=== PATIENT | female | born 1960 | race Caucasian/White ===

== ENCOUNTER 2017-03-02 10:17 | Day surgery (SDC) | payer MEDICARE, OTHER ==
[2017-02-24 15:25] VITALS: BMI 24.1
[~2017-03-02 10:17] MED LIST: DEXAMETHASONE SOD PHOSPHATE 4 MG/ML 1 ML VIAL IV ONE; FAMOTIDINE 20 MG/2 ML VIAL IV ONE; LACTATED RINGERS 1,000 ML IV SCH; LIDOCAINE 1% 20 ML VIAL (10MG/ML) FOR IV START INTRADERMA PRN; ONDANSETRON 4 MG/2 ML VIAL IVP ONE; Pre Op ABX Message 1 EACH MISC MISCELLANE ONE; fentaNYL (PF) 50 MCG/ML 2 ML AMP IV PRN
[2017-03-02] MEDS ORDERED: LIDOCAINE 1% INJ 10MG/ML (20 ML MDV) ONE (11:57)
[2017-03-02] MEDS ORDERED: ROCURONIUM BROMIDE 10 MG/ML 10 ML VIAL IV ONE (11:57)
[2017-03-02] MEDS ORDERED: GLYCOPYRROLATE 0.2 MG/ML 2 ML VIAL ONE (11:57)
[2017-03-02] MEDS ORDERED: DEXAMETHASONE SOD PHOS (MDV) 100 MG/10 ML VIAL ONE (11:57)
[2017-03-02] MEDS ORDERED: PROPOFOL 10 MG/ML 20 ML VIAL IV ONE (11:57)
[2017-03-02] MEDS ORDERED: SUCCINYLCHOLINE CHLORIDE 100 MG/5 ML SYR IV ONE (11:57)
[2017-03-02] MEDS ORDERED: fentaNYL (PF) 50 MCG/ML 2 ML AMP ONE (11:57)
[2017-03-02] MEDS ORDERED: NEOSTIGMINE 1 MG/ML 10 ML VIAL ONE (11:57)
[2017-03-02] MEDS ORDERED: MIDAZOLAM 2 MG/2 ML VIAL ONE (11:57)
--- NOTE | 2017-03-02 12:44 | P.OP ---
Date of Procedure: 03/02/17 Preoperative Diagnosis: Bilateral true vocal cord polyps Postoperative Diagnosis: Same Procedure(s) Performed: Microlaryngoscopy with excision bilateral true vocal cord polyps Anesthesia: MATILDAA Surgeon: Narinder Garza Estimated Blood Loss (ml): 1 Pathology: other (Bilateral true vocal cord biopsies) Condition: stable Disposition: PACU Indications for Procedure: This is a 56-year-old white female who has chronic tobacco abuse and has developed what appears to be vocal cord polyps. She's had these excised previously but they have recurred. Operative Findings: Bilateral true vocal cord polyps protruding approximately 3 mm mid true vocal cord Description of Procedure: The patient was brought in the operative suite and placed in a supine position. The patient underwent induction of general anesthesia with oral endotracheal intubation without difficulty. The patient was prepped and draped in the usual aseptic fashion. Patient was positioned with a head donut and shoulder roll prior to the prep. A tooth guard was placed and direct laryngoscopy was performed with systematic evaluation of the base of tongue vallecula both piriform sinuses post cricoid area and endolarynx. With the larynx in good visualization the laryngoscope was placed in suspension and the Zeiss microscope was brought into position. The larynx was well visualized. There were polyps noted bilaterally at the mid true vocal cord. These were excised individually with microdissection technique leaving the overlying normal- appearing mucosa intact which was redraped. The dissection was down to the lamina propria but the lamina propria was left intact. Hemostasis was noted to be good. The laryngoscope and tooth guard were then removed. The patient was allowed to emerge from general anesthesia having tolerated the procedure well was extubated in the operating suite and transferred to the postop recovery area in satisfactory condition.
[2017-03-02 12:59] VITALS: TEMP 97.1
[2017-03-02] MEDS ORDERED: ACETAMINOPHEN TAB 325 MG TAB PO ONE ×2 (14:00→14:07)
[2017-03-02 14:03] VITALS: BP 123/71; PULSE 66; RESP 16
== END 2017-03-02 14:33 | disposition home or self-care (01) ==
LOC: OR 10:17
PROVIDERS: ATTEND Otolaryngology
DX: J38.2 Nodules of vocal cords (principal); K21.9 Gastro-esophageal reflux disease without esophagitis; J43.9 Emphysema, unspecified; F17.210 Nicotine dependence, cigarettes, uncomplicated; E78.00 Pure hypercholesterolemia, unspecified; M81.0 Age-related osteoporosis without current pathological fracture; I73.9 Peripheral vascular disease, unspecified; G62.9 Polyneuropathy, unspecified; Z79.02 Long term (current) use of antithrombotics/antiplatelets; Z79.82 Long term (current) use of aspirin; Z79.899 Other long term (current) drug therapy; Z91.09 Other allergy status, other than to drugs and biological substances; Z79.51 Long term (current) use of inhaled steroids
CPT/HCPCS: 88305; 31536; J2250; J2710; J2405; J2001; J3010; J1100; J0330; J2704

== ENCOUNTER 2023-08-27 08:51 | Emergency (ER) | payer OTHER, MEDICARE ==
--- NOTE | 2023-08-27 09:22 | ED ---
General Adult HPI - General Chief complaint: Shortness of Breath Stated complaint: SOB Time Seen by Provider: 08/27/23 09:01 Source: patient, EMS, RN notes reviewed, old records reviewed Mode of arrival: EMS Limitations: no limitations - History of Present Illness Initial comments: 62-year-old female presenting with chief complaint of dyspnea and epigastric pain. Patient's symptoms began approximately 4 hours prior to arrival. Patient does have history of COPD. She denies cough. Denies lower extremity pain or swelling. She reports some epigastric discomfort. Denies central chest pain. She states she felt like she could not catch her breath. - Related Data Home Medications Medication Instructions Recorded Confirmed Aspirin 162 mg PO DAILY 02/24/17 03/01/17 Betamethasone Dipropionate 1 applic TOPICAL DAILY PRN 02/24/17 02/24/17 [Betamethasone Dipropionate 0.05%] Budesonide/Formoterol Fumarate 2 puff INHALATION DAILY 02/24/17 03/02/17 [Symbicort 160-4.5 Mcg Inhaler] Clopidogrel [Plavix] 75 mg PO DAILY 02/24/17 02/24/17 Gabapentin [Neurontin] 300 mg PO TID 02/24/17 03/02/17 Meloxicam [Mobic] 15 mg PO DAILY 02/24/17 03/02/17 amLODIPine [Norvasc] 2.5 mg PO DAILY 02/24/17 02/24/17 carvediloL [Coreg] 3.125 mg PO PC-LUNCH 02/24/17 03/02/17 methIMAzole [Tapazole] 5 mg PO DAILY 02/24/17 02/24/17 Previous Rx's Medication Instructions Recorded predniSONE 50 mg PO DAILY #5 tab 08/27/23 Allergies Allergy/AdvReac Type Severity Reaction Status Date / Time No Known Allergies Allergy Verified 08/27/23 08:57 Review of Systems ROS Statement: Those systems with pertinent positive or pertinent negative responses have been documented in the HPI. ROS Other: All systems not noted in ROS Statement are negative. Past Medical History Past Medical History: COPD, Fibromyalgia, GERD/Reflux, Hypertension, Mu sculoskeletal Disorder, Osteoarthritis (OA), Thyroid Disorder, Vascular Disorder Additional Past Medical History / Comment(s): neuropathy, cysts on kidney-dr monitors, DDD, admission last year in [place] for "fluid around heart" History of Any Multi-Drug Resistant Organisms: None Reported Past Surgical History: Adenoidectomy, Section, Heart Catheterization, Tonsillectomy Additional Past Surgical History / Comment(s): C/S x3, polyp removed from vocal cord, colonoscopy Past Anesthesia/Blood Transfusion Reactions: No Reported Reaction Past Psychological History: Anxiety Smoking Status: Current every day smoker Past Alcohol Use History: Occasional Past Drug Use History: Marijuana - Past Family History Mother Sister(s) Family Medical History: Cancer General Exam Limitations: no limitations General appearance: alert, in no apparent distress Head exam: Present: atraumatic, normocephalic Eye exam: Present: normal appearance, PERRL ENT exam: Present: normal exam Neck exam: Present: normal inspection. Absent: tenderness, meningismus Respiratory exam: Present: decreased breath sounds. Absent: respiratory distres s, wheezes, rales, accessory muscle use Cardiovascular Exam: Present: regular rate, normal rhythm GI/Abdominal exam: Present: soft. Absent: distended, tenderness, guarding Extremities exam: Present: normal inspection, normal capillary refill. Absent: pedal edema Neurological exam: Present: alert, oriented X3, CN II-XII intact. Absent: motor sensory deficit Skin exam: Present: warm, dry, intact. Absent: cyanosis, diaphoretic Course Vital Signs 08/27/23 08/27/23 08:54 10:05 Temperature 97.7 F Pulse Rate 75 68 Respiratory 20 16 Rate Blood Pressure 152/65 135/71 O2 Sat by Pulse 100 99 Oximetry Medical Decision Making - Medical Decision Making Was pt. sent in by a medical professional or institution (, PA, APPLICATIONS SYSTEMS ANALYST, urgent care, hospital, or senior care...) When possible be specific @ -No Did you speak to anyone other than the patient for history (EMS, parent, family, police, friend...)? What history was obtained from this source @ -No Did you review nursing and triage notes (agree or disagree)? Why? @ -I reviewed and agree with nursing and triage notes Were old charts reviewed (outside hosp., previous admission, EMS record, old EK G, old radiological studies, urgent care reports/EKG's, senior care records)? Report findings @ -No old charts were reviewed Differential Diagnosis (chest pain, altered mental status, abdominal pain women, abdominal pain men, vaginal bleeding, weakness, fever, dyspnea, syncope, headache, dizziness, GI bleed, back pain, seizure, CVA, palpatations, mental health, musculoskeletal)? @ -Not applicable EKG interpreted by me (3pts min.). @ -Sinus bradycardia rate of 57, ND interval 164, QRS duration 86, QTc [address] segment elevation. X-rays interpreted by me (1pt min.). @Chest x-ray: Negative for acute cardiopulmonary findings. No pneumothorax, no focal pneumonia CT interpreted by me (1pt min.). @ -None done U/S interpreted by me (1pt. min.). @ -None done What testing was considered but not performed or refused? (CT, X-rays, U/S, labs)? Why? @ -None What meds were considered but not given or refused? Why? @ -None Did you discuss the management of the patient with other professionals (professionals i.e. , PA, APPLICATIONS SYSTEMS ANALYST, lab, RT, psych nurse, social research assistant, oracle ebs developer, teacher, penal officer, pillowcase maker)? Give summary @ -No Was smoking cessation discussed for >3mins.? @ -No Was critical care preformed (if so, how long)? @ -No Were there social determinants of health that impacted care today? How? (Homelessness, low income, unemployed, alcoholism, drug addiction, transportatio n, low edu. Level, literacy, decrease access to med. care, correction, rehab)? @ -No Was there de-escalation of care discussed even if they declined (Discuss DNR or withdrawal of care, Hospice)? DNR status @ -No What co-morbidities impacted this encounter? (DM, HTN, Smoking, COPD, CAD, Cancer, CVA, ARF, Chemo, Hep., AIDS, mental health diagnosis, sleep apnea, morbid obesity)? @COPD. Was patient admitted / discharged? Hospital course, mention meds given and route, prescriptions, significant lab abnormalities, going to OR and other pertinent info. @ -[h 62-year-old female with an episode of dyspnea, resolved. Patient does have history of COPD. She has slightly diminished air entry but no wheezing. No respiratory distress, no hypoxia. EKG, chest x-ray, laboratory testing including D-dimer and troponin and BNP is unremarkable. Patient is observed and symptoms resolved at this time. She will monitor closely, may be related to COPD. Placed on a short course of steroids she will follow-up with her primary care provider and return as needed. Undiagnosed new problem with uncertain prognosis? @ -No Drug Therapy requiring intensive monitoring for toxicity (Heparin, Nitro, Insulin, Cardizem)? @ -No Were any procedures done? @ -No Diagnosis/symptom? @ -Dyspnea, COPD Acute, or Chronic, or Acute on Chronic? @ -Acute Uncomplicated (without systemic symptoms) or Complicated (systemic symptoms)? @ -Default Side effects of treatment? @ -No Exacerbation, Progression, or Severe Exacerbation? @ -No Poses a threat to life or bodily function? How? (Chest pain, USA, SC, pneumonia, PE, COPD, DKA, ARF, appy, cholecystitis, CVA, Diverticulitis, Homicidal, Suicidal, threat to staff... and all critical care pts) @ -Low risk at this time - Lab Data Result diagrams: 08/27/23 09:24 08/27/23 09: Lab Results 08/27/23 08/27/23 08/27/23 Range/Units 09:24 09:24 09:24 WBC 10.1 (3.8-10.6) k/uL RBC 4.62 (3.80-5.40) m/uL Hgb 14.8 (11.4-16.0) gm/dL Hct 44.3 (34.0-46.0) % MCV 95.8 (80.0-100.0) fL MCH 32.1 (25.0-35.0) pg MCHC 33.5 (31.0-37.0) g/dL RDW 13.2 (11.5-15.5) % Plt Count 175 (150-450) k/uL MPV 9.7 Neutrophils % 72 % Lymphocytes % 20 % Monocytes % 4 % Eosinophils % 2 % Basophils % 1 % Neutrophils # 7.3 (1.3-7.7) k/uL Lymphocytes # 2.0 (1.0-4.8) k/uL Monocytes # 0.4 (0-1.0) k/uL Eosinophils # 0.2 (0-0.7) k/uL Basophils # 0.1 (0-0.2) k/uL PT 10.5 (10.0-12.5) sec INR 0.9 (<1.2) APTT 25.1 (22.0-30.0) sec D-Dimer 0.27 (<0.60) mg/L FEU Sodium 141 (137-145) mmol/L Potassium 3.7 (3.5-5.1) mmol/L Chloride 113 H (98-107) mmol/L Carbon Dioxide 23 (22-30) mmol/L Anion Gap 5 mmol/L BUN 18 H (7-17) mg/dL Creatinine 0.66 (0.52-1.04) mg/dL Est GFR (CKD-EPI)AfAm >90 (>60 ml/min/1.73 sqM) Est GFR (CKD-EPI)NonAf >90 (>60 ml/min/1.73 sqM) Glucose 104 H (74-99) mg/dL Plasma Lactic Acid Mayo (0.7-2.0) mmol/L Calcium 9.2 (8.4-10.2) mg/dL Total Bilirubin 0.6 (0.2-1.3) mg/dL AST 20 (14-36) U/L ALT 20 (4-34) U/L Alkaline Phosphatase 93 (38-126) U/L Troponin I (0.000-0.034) ng/mL NT-Pro-B Natriuret Pep 272 pg/mL Total Protein 5.9 L (6.3-8.2) g/dL Albumin 4.0 (3.5-5.0) g/dL Lipase 65 (23-300) U/L 08/27/23 08/27/23 Range/Units 09:24 09:24 WBC (3.8-10.6) k/uL RBC (3.80-5.40) m/uL Hgb (11.4-16.0) gm/dL Hct (34.0-46.0) % MCV (80.0-100.0) fL MCH (25.0-35.0) pg MCHC (31.0-37.0) g/dL RDW (11.5-15.5) % Plt Count (150-450) k/uL MPV Neutrophils % % Lymphocytes % % Monocytes % % Eosinophils % % Basophils % % Neutrophils # (1.3-7.7) k/uL Lymphocytes # (1.0-4.8) k/uL Monocytes # (0-1.0) k/uL Eosinophils # (0-0.7) k/uL Basophils # (0-0.2) k/uL PT (10.0-12.5) sec INR (<1.2) APTT (22.0-30.0) sec D-Dimer (<0.60) mg/L FEU Sodium (137-145) mmol/L Potassium (3.5-5.1) mmol/L Chloride (98-107) mmol/L Carbon Dioxide (22-30) mmol/L Anion Gap mmol/L BUN (7-17) mg/dL Creatinine (0.52-1.04) mg/dL Est GFR (CKD-EPI)AfAm (>60 ml/min/1.73 sqM) Est GFR (CKD-EPI)NonAf (>60 ml/min/1.73 sqM) Glucose (74-99) mg/dL Plasma Lactic Acid Mayo 1.3 (0.7-2.0) mmol/L Calcium (8.4-10.2) mg/dL Total Bilirubin (0.2-1.3) mg/dL AST (14-36) U/L ALT (4-34) U/L Alkaline Phosphatase (38-126) U/L Troponin I <0.012 (0.000-0.034) ng/mL NT-Pro-B Natriuret Pep pg/mL Total Protein (6.3-8.2) g/dL Albumin (3.5-5.0) g/dL Lipase (23-300) U/L Disposition Clinical Impression: COPD (chronic obstructive pulmonary disease) Disposition: HOME SELF-CARE Instructions (If sedation given, give patient instructions): COPD (Chronic Obstructive Pulmonary Disease) (ED) Prescriptions: predniSONE 50 mg PO DAILY #5 tab Is patient prescribed a controlled substance at d/c from ED?: No Referrals: Leonidas Benson MD [Primary Care Provider] - 1-2 days Time of Disposition: 10:59
[2023-08-27 09:32] LABS: Basophils # (A) 0.1 k/uL (0-0.2); Basophils % (A) 1 %; Eosinophils # (A) 0.2 k/uL (0-0.7); Eosinophils % (A) 2 %; HCT 44.3 % (34.0-46.0); HGB 14.8 gm/dL (11.4-16.0); Lymphocytes % (A) 20 %; MCH 32.1 pg (25.0-35.0); MCHC 33.5 g/dL (31.0-37.0); MCV 95.8 fL (80.0-100.0); Mean Platelet Volume 9.7; Monocytes # (A) 0.4 k/uL (0-1.0); Monocytes % (A) 4 %; Neutrophils # (A) 7.3 k/uL (1.3-7.7); Neutrophils % (A) 72 %; Platelet Count 175 k/uL (150-450); RBC 4.62 m/uL (3.80-5.40); RDW 13.2 % (11.5-15.5); WBC 10.1 k/uL (3.8-10.6)
--- NOTE | 2023-08-27 09:44 | XR ---
EXAMINATION TYPE: XR chest 2V DATE OF EXAM: 08/27/2023 9:36 AM CLINICAL INDICATION:Female, 62 years old with history of difficulty breathing; H COMPARISON: None TECHNIQUE: XR chest 2V Frontal view of the chest. FINDINGS: Lungs/Pleura: There is no evidence of pleural effusion, focal consolidation, or pneumothorax. Pulmonary vascularity: Unremarkable. Heart/mediastinum: Cardiomediastinal silhouette is unremarkable. Musculoskeletal: No acute osseous pathology. IMPRESSION: No acute cardiopulmonary disease/process.
[2023-08-27 09:46] LABS: ALT 20 U/L (4-34); AST 20 U/L (14-36); African American GFR (CKD) >90 (>60 ml/min/1.73 sqM); Alkaline Phosphatase 93 U/L (38-126); Anion Gap 5 mmol/L; Blood Urea Nitrogen 18 mg/dL (7-17); Calcium 9.2 mg/dL (8.4-10.2); Carbon Dioxide 23 mmol/L (22-30); Chloride 113 mmol/L (98-107); Glucose 104 mg/dL (74-99); Lipase 65 U/L (23-300); Non-African American GFR(CKD) >90 (>60 ml/min/1.73 sqM); Potassium 3.7 mmol/L (3.5-5.1); Sodium 141 mmol/L (137-145); Total Bilirubin 0.6 mg/dL (0.2-1.3); Total Protein 5.9 g/dL (6.3-8.2)
[2023-08-27 09:54] LABS: NT-Pro-B-Type Natriuretic Pept 272 pg/mL
[2023-08-27 09:55] LABS: INR 0.9 (<1.2); Partial Thromboplastin Time 25.1 sec (22.0-30.0); Prothrombin Time 10.5 sec (10.0-12.5)
[2023-08-27 11:07] VITALS: BP 147/62; PULSE 58; RESP 18; TEMP 98
== END 2023-08-27 11:07 | disposition home or self-care (01) ==
LOC: EC 08:51
DX: J44.9 Chronic obstructive pulmonary disease, unspecified (principal); R00.1 Bradycardia, unspecified; F17.200 Nicotine dependence, unspecified, uncomplicated; Z79.51 Long term (current) use of inhaled steroids
CPT/HCPCS: 36415; 71046; 80053; 83605; 83690; 83880; 84484; 85025; 85379; 85610; 85730; 93005; 99285

== ENCOUNTER 2024-06-30 16:19 | Inpatient (IN) | payer MEDICARE, OTHER ==
--- NOTE | 2024-06-30 16:24 | ED ---
Recheck HPI - General Stated Complaint: abn labs, anxiety Time Seen by Provider: 06/30/24 16:23 Source: RN notes reviewed, old records reviewed Mode of arrival: EMS Limitations: no limitations - History of Present Illness Initial Comments: This is a 63-year-old female to the ED for evaluation today. This patient has presented to us for evaluation from [facility] for evaluation regards to CHF with elevated troponin, suspected PE versus CHF. Patient here is presenting with shortness of breath is not on home O2 and is significantly hypoxic without supplemental oxygen. Patient himself is complaining of shortness of breath today. Patient also with severe and extreme anxiety also affecting her life with recent loss of her son. Patient denying any current chest pain MD Complaint: abnormal lab, needs IV antibiotics -: unknown Returns Today for: Called Because of Abnormal Lab/Test, persistent/worsening pain related to initial visit Symptoms Since Prior Visit: worsening pain Context: called for abnormal lab result Associated Symptoms: chest pain, shortness of breath Treatments Prior to Arrival: Given Pain Meds on - Related Data Home Medications Medication Instructions Recorded Confirmed Aspirin 81 mg PO DAILY 02/24/17 06/30/24 Budesonide/Formoterol Fumarate 2 puff INHALATION RT-BID 02/24/17 06/30/24 [Symbicort 160-4.5 Mcg Inhaler] Clopidogrel [Plavix] 75 mg PO DAILY 02/24/17 06/30/24 Gabapentin [Neurontin] 300 mg PO TID PRN 02/24/17 06/30/24 methIMAzole [Tapazole] 5 mg PO DAILY 02/24/17 06/30/24 Albuterol Inhaler [Ventolin Hfa 2 puff INHALATION RT-Q4H PRN 06/30/24 06/30/24 Inhaler] Omeprazole 40 mg PO DAILY 06/30/24 06/30/24 Previous Rx's Medication Instructions Recorded Atorvastatin [Lipitor] 80 mg PO DAILY #30 tab 07/05/24 Furosemide [Lasix] 20 mg PO DAILY #30 tab 07/05/24 LORazepam [Ativan] 0.5 mg PO Q12H PRN #10 tab 07/05/24 Losartan [Cozaar] 12.5 mg PO HS #30 tab 07/05/24 Metoprolol Tartrate [Lopressor] 25 mg PO BID #60 tab 07/05/24 Nicotine 14Mg/24Hr Patch [Habitrol] 1 patch TRANSDERM DAILY #30 patch 07/05/24 Spironolactone [Aldactone] 12.5 mg PO DAILY #30 tablet 07/05/24 predniSONE 10 mg PO DAILY #30 tab 07/05/24 Allergies Allergy/AdvReac Type Severity Reaction Status Date / Time No Known Allergies Allergy Verified 06/30/24 17:09 Review of Systems ROS Statement: Those systems with pertinent positive or pertinent negative responses have been documented in the HPI. ROS Other: All systems not noted in ROS Statement are negative. Past Medical History Past Medical History: COPD, Fibromyalgia, GERD/Reflux, Hypertension, Musculoskeletal Disorder, Osteoarthritis (OA), Thyroid Disorder, Vascular Disorder Additional Past Medical History / Comment(s): neuropathy, cysts on kidney-dr monitors, DDD, admission last year in [place] for "fluid around heart" History of Any Multi-Drug Resistant Organisms: None Reported Past Surgical History: Adenoidectomy, Section, Heart Catheterization, Tonsillectomy Additional Past Surgical History / Comment(s): C/S x3, polyp removed from vocal cord, colonoscopy Past Anesthesia/Blood Transfusion Reactions: No Reported Reaction Past Psychological History: Anxiety Smoking Status: Current every day smoker Past Alcohol Use History: Occasional Past Drug Use History: Marijuana - Past Family History Mother Sister(s) Family Medical History: Cancer General Exam General appearance: alert, anxious, in distress Head exam: Present: atraumatic, normocephalic, normal inspection Eye exam: Present: normal appearance, PERRL, EOMI. Absent: scleral icterus, conjunctival injection, periorbital swelling ENT exam: Present: normal exam, mucous membranes moist Neck exam: Present: normal inspection. Absent: tenderness, meningismus, lym phadenopathy Respiratory exam: Present: respiratory distress, wheezes, accessory muscle use, decreased breath sounds, prolonged expiratory. Absent: rales, rhonchi, stridor Cardiovascular Exam: Present: normal rhythm, tachycardia, normal heart sounds. Absent: systolic murmur, diastolic murmur, rubs, gallop, clicks GI/Abdominal exam: Present: soft, normal bowel sounds. Absent: distended, tenderness, guarding, rebound, rigid Extremities exam: Present: normal inspection, full ROM, normal capillary refill. Absent: tenderness, pedal edema, joint swelling, calf tenderness Back exam: Present: normal inspection Neurological exam: Present: alert, oriented X3, CN II-XII intact Psychiatric exam: Present: normal affect, normal mood Skin exam: Present: warm, dry, intact, normal color. Absent: rash Course Vital Signs 06/30/24 06/30/24 06/30/24 16:23 16:30 17:21 Temperature 97.5 F L Pulse Rate 102 H 108 H Respiratory 18 Rate Blood Pressure 104/64 O2 Sat by Pulse 82 L 94 L Oximetry Fraction of Inspired Oxygen (FIO2) 06/30/24 06/30/24 06/30/24 18:04 19:10 19:37 Temperature Pulse Rate 105 H 101 H 100 Respiratory 18 24 Rate Blood Pressure 91/62 82/63 O2 Sat by Pulse 93 L 94 L Oximetry Fraction of 75 Inspired Oxygen (FIO2) - Reevaluation(s) Reevaluation #1: 06/30/24 17:28 Medical records reviewed Transferring paperwork reviewed including increased troponin, CT scan showing no PE or CHF Reevaluation #2: 06/30/24 17:28 Patient mildly improved with supplemental O2 but still in respiratory distress Reevaluation #3: 06/30/24 17:28 Patient informed of results questions answered Reevaluation #4: Was pt. sent in by a medical professional or institution (, PA, WATER RECLAMATION SYSTEMS OPERATOR, urgent care, hospital, or skilled nursing...) When possible be specific @ -no Did you speak to anyone other than the patient for history (EMS, parent, family, police, friend...)? What history was obtained from this source @ -no Did you review nursing and triage notes (agree or disagree)? Why? @ -agree Are old charts reviewed (outside hosp., previous admission, EMS record, old EKG, old radiological studies, urgent care reports/EKG's, skilled nursing records)? Report findings @ -yes Differential Diagnosis (chest pain, altered mental status, abdominal pain women, abdominal pain men, vaginal bleeding, weakness, fever, dyspnea, syncope, headache, dizziness, GI bleed, back pain, seizure, CVA, palpatations, mental health, musculoskeletal)? @ -prior EKG interpreted by me (3pts min.). @ -yes X-rays interpreted by me (1pt min.). @ -yes positive for CHF CT interpreted by me (1pt min.). @ -yes negative for acute disease U/S interpreted by me (1pt. min.). @ -no What testing was considered but not performed or refused? (CT, X-rays, U/S, labs)? Why? @ -none What meds were considered but not given or refused? Why? @ -none Did you discuss the management of the patient with other professionals (professionals i.e. Dr., PA, WATER RECLAMATION SYSTEMS OPERATOR, lab, RT, psych nurse, forensic social worker, mechanical commissioning engineer, teacher, fundraising officer, disability case manager)? Give summary @ -no Was smoking cessation discussed for >3mins.? @ -no Was critical care preformed (if so, how long)? @ -yes31 Were there social determinants of health that impacted care today? How? (Homelessness, low income, unemployed, alcoholism, drug addiction, transportation, low edu. Level, literacy, decrease access to med. care, shelter, r ehab)? @ -none Was there de-escalation of care discussed even if they declined (Discuss DNR or withdrawal of care, Hospice)? DNR status @ -no What co-morbidities impacted this encounter? (DM, HTN, Smoking, COPD, CAD, Cancer, CVA, ARF, Chemo, Hep., AIDS, mental health diagnosis, sleep apnea, morbid obesity)? @ -none Was patient admitted / discharged? Hospital course, mention meds given and route , prescriptions, significant lab abnormalities, going to OR and other pertinent info. @ - 63 female with acute non-STEMI, significant COPD with hypoxia and CHF. Patient will admit for possible cardiogenic shock, hypoxic respiratory failure with COPD and CHF patient is having also severe anxiety here in the ER with loss of her son yesterday. Admitted Undiagnosed new problem with uncertain prognosis? @ -no Drug Therapy requiring intensive monitoring for toxicity (Heparin, Nitro, Insulin, Cardizem)? @ -no Were any procedures done? @ -no Diagnosis/symptom? @ -Non-ST elevated MO with COPD hypoxia and CHF, hypoxic respiratory failure Acute, or Chronic, or Acute on Chronic? @ -Acute Uncomplicated (without systemic symptoms) or Complicated (systemic symptoms)? @ -Complicated Side effects of treatment? @ -no Exacerbation, Progression, or Severe Exacerbation? @ -exacerbation Poses a threat to life or bodily function? How? (Chest pain, USA, MO, pneumonia, PE, COPD, DKA, ARF, appy, cholecystitis, CVA, Diverticulitis, Homicidal, Suicidal, threat to staff... and all critical care pts) @ -yes hypoxic respiratory failure Reevaluation #5: Differential Dyspnea: Coronary syndrome, arrhythmia, tamponade, asthma, COPD, pulmonary embolism, pneumonia, pneumothorax, pulmonary effusion, anaphylaxis, diabetic ketoacidosis, flailed chest, pulmonary contusion, diaphragmatic rupture, anemia, neuromuscular, this is not meant to be an all-inclusive list. - Consultations Consultation #1: Spoke with [facility] who agrees to admit this patient Medical Decision Making - Medical Decision Making 63 female with acute non-STEMI, significant COPD with hypoxia and CHF. Patient will admit for possible cardiogenic shock, hypoxic respiratory failure with COPD and CHF patient is having also severe anxiety here in the ER with loss of her son yesterday. - Lab Data Result diagrams: 07/03/24 06:27 07/03/24 06:27 Lab Results 06/30/24 06/30/24 06/30/24 Range/Units 16:56 16:56 16:56 WBC 22.95 H (4.50-10.00) 10*3/uL RBC 4.93 (4.10-5.20) 10*6/uL Hgb 16.1 H (12.0-15.0) g/dL Hct 46.1 (37.2-46.3) % MCV 93.5 (80.0-97.0) fL MCH 32.7 H (27.0-32.0) pg MCHC 34.9 (32.0-37.0) g/dL Plt Count 219 (140-440) 10*3/uL MPV 12.0 (9.5-12.2) fL Immature Gran % (Auto) 0.5 % Neutrophils % 77.9 % Lymphocytes % 14.9 % Monocytes % 6.3 % Eosinophils % 0.1 % Basophils % 0.3 % Immature Gran # 0.11 H (0.00-0.04) 10*3/uL Neutrophils # 17.87 H (1.80-7.70) 10*3/uL Lymphocytes # 3.42 (0.90-5.00) 10*3/uL Monocytes # 1.45 H (0.20-1.00) 10*3/uL Eosinophils # 0.03 L (0.04-0.35) 10*3/uL Basophils # 0.07 (0.00-0.10) 10*3/uL PT 11.5 (10.0-12.5) sec INR 1.1 (<1.2) APTT 31.3 H (22.0-30.0) sec Sodium 136 L (137-145) mmol/L Potassium 5.1 (3.5-5.1) mmol/L Chloride 108 H (98-107) mmol/L Carbon Dioxide 16 L (22-30) mmol/L Anion Gap 12 mmol/L BUN 33 H (7-17) mg/dL Creatinine 0.68 (0.52-1.04) mg/dL Est GFR (CKD-EPI)AfAm >90 (>60 ml/min/1.73 sqM) Est GFR (CKD-EPI)NonAf >90 (>60 ml/min/1.73 sqM) Glucose 150 H (74-99) mg/dL Plasma Lactic Acid Mayo (0.7-2.0) mmol/L Calcium 9.4 (8.4-10.2) mg/dL Phosphorus 3.5 (2.5-4.5) mg/dL Magnesium 1.9 (1.6-2.3) mg/dL Total Bilirubin 1.4 H (0.2-1.3) mg/dL AST 42 H (14-36) U/L ALT 26 (4-34) U/L Alkaline Phosphatase 88 (38-126) U/L Troponin I (0.000-0.034) ng/mL Total Protein 6.8 (6.3-8.2) g/dL Albumin 4.4 (3.5-5.0) g/dL Salicylates mg/dL Acetaminophen ug/mL 06/30/24 06/30/24 06/30/24 Range/Units 16:56 16:56 16:56 WBC (4.50-10.00) 10*3/uL RBC (4.10-5.20) 10*6/uL Hgb (12.0-15.0) g/dL Hct (37.2-46.3) % MCV (80.0-97.0) fL MCH (27.0-32.0) pg MCHC (32.0-37.0) g/dL Plt Count (140-440) 10*3/uL MPV (9.5-12.2) fL Immature Gran % (Auto) % Neutrophils % % Lymphocytes % % Monocytes % % Eosinophils % % Basophils % % Immature Gran # (0.00-0.04) 10*3/uL Neutrophils # (1.80-7.70) 10*3/uL Lymphocytes # (0.90-5.00) 10*3/uL Monocytes # (0.20-1.00) 10*3/uL Eosinophils # (0.04-0.35) 10*3/uL Basophils # (0.00-0.10) 10*3/uL PT (10.0-12.5) sec INR (<1.2) APTT (22.0-30.0) sec Sodium (137-145) mmol/L Potassium (3.5-5.1) mmol/L Chloride (98-107) mmol/L Carbon Dioxide (22-30) mmol/L Anion Gap mmol/L BUN (7-17) mg/dL Creatinine (0.52-1.04) mg/dL Est GFR (CKD-EPI)AfAm (>60 ml/min/1.73 sqM) Est GFR (CKD-EPI)NonAf (>60 ml/min/1.73 sqM) Glucose (74-99) mg/dL Plasma Lactic Acid Mayo 2.3 H* (0.7-2.0) mmol/L Calcium (8.4-10.2) mg/dL Phosphorus (2.5-4.5) mg/dL Magnesium (1.6-2.3) mg/dL Total Bilirubin (0.2-1.3) mg/dL AST (14-36) U/L ALT (4-34) U/L Alkaline Phosphatase (38-126) U/L Troponin I 2.140 H* (0.000-0.034) ng/mL Total Protein (6.3-8.2) g/dL Albumin (3.5-5.0) g/dL Salicylates <1.0 mg/dL Acetaminophen <10.0 ug/mL - EKG Data -: EKG Interpreted by Me (EKG is sinus 89 MA 142 QRS 80 QTc 392) - Radiology Data Radiology results: report reviewed (Chest x-ray is positive CHF), image reviewed Critical Care Time Critical Care Time: Yes Total Critical Care Time: 31 Disposition Clinical Impression: Hypoxia, CHF (congestive heart failure), Acute exacerbation of chronic obst ructive pulmonary disease (COPD), Pulmonary edema, NSTEMI (non-ST elevated myocardial infarction), Leukocytosis, Altered mental status Disposition: ADMITTED IP TO THIS HOSP Is patient prescribed a controlled substance at d/c from ED?: No Time of Disposition: 17:30
[2024-06-30] MEDS: diphenhydrAMINE 50 MG/ML 1 ML VIAL IVP STA (16:39)
[2024-06-30] MEDS: DEXAMETHASONE SOD PHOSPHATE 10 MG/ML 1 ML VIAL IVP STA (16:42)
[2024-06-30 17:00] LABS: Basophils # (A) 0.07 10*3/uL (0.00-0.10); Basophils % (A) 0.3 %; Eosinophils # (A) 0.03 10*3/uL (0.04-0.35); Eosinophils % (A) 0.1 %; HCT 46.1 % (37.2-46.3); HGB 16.1 g/dL (12.0-15.0); Lymphocytes # (A) 3.42 10*3/uL (0.90-5.00); Lymphocytes % (A) 14.9 %; MCH 32.7 pg (27.0-32.0); MCHC 34.9 g/dL (32.0-37.0); MCV 93.5 fL (80.0-97.0); Monocytes # (A) 1.45 10*3/uL (0.20-1.00); Monocytes % (A) 6.3 %; Neutrophils # (A) 17.87 10*3/uL (1.80-7.70); Neutrophils % (A) 77.9 %; Platelet Count 219 10*3/uL (140-440); RBC 4.93 10*6/uL (4.10-5.20); RDW 12.1 % (11.5-14.5); WBC 22.95 10*3/uL (4.50-10.00)
[2024-06-30] MEDS: SODIUM CHLORIDE 0.9% 1,000 ML IV SCH (17:05)
[2024-06-30 17:11] LABS: INR 1.1 (<1.2); Partial Thromboplastin Time 31.3 sec (22.0-30.0); Prothrombin Time 11.5 sec (10.0-12.5)
[2024-06-30] MEDS: IPRATROPIUM-ALBUTEROL 3 ML NEB INHALATION STA ×2 (17:11→17:44)
[2024-06-30 17:12] LABS: ALT 26 U/L (4-34); African American GFR (CKD) >90 (>60 ml/min/1.73 sqM); Anion Gap 12 mmol/L; Blood Urea Nitrogen 33 mg/dL (7-17); Calcium 9.4 mg/dL (8.4-10.2); Carbon Dioxide 16 mmol/L (22-30); Chloride 108 mmol/L (98-107); Glucose 150 mg/dL (74-99); Non-African American GFR(CKD) >90 (>60 ml/min/1.73 sqM); Sodium 136 mmol/L (137-145); Total Bilirubin 1.4 mg/dL (0.2-1.3)
[2024-06-30] MEDS: LORazepam 1 MG/0.5 ML VIAL IV STA ×2 (17:17→17:51)
[2024-06-30] MEDS ORDERED: MORPHINE SULFATE 4 MG/ML SYRINGE IV PRN (17:18)
[2024-06-30 17:29] LABS: Albumin 4.4 g/dL (3.5-5.0); Magnesium 1.9 mg/dL (1.6-2.3); Phosphorus 3.5 mg/dL (2.5-4.5); Potassium 5.1 mmol/L (3.5-5.1); Total Protein 6.8 g/dL (6.3-8.2)
[2024-06-30 17:30] LABS: AST 42 U/L (14-36); Alkaline Phosphatase 88 U/L (38-126)
[2024-06-30] MEDS: ATORVASTATIN 80 MG TAB PO SCH (17:33)
[2024-06-30] MEDS: ASPIRIN 81 MG PO STA (17:33)
[2024-06-30] MEDS: HEPARIN SOD,PORK IN 0.45% NACL 25,000 UNIT in 0.45% NACL 1 250ML.BAG IV SCH (17:36)
[2024-06-30] MEDS: MORPHINE SULFATE 4 MG/ML SYRINGE IVP STA (17:51)
[2024-06-30 18:02] LABS: VBG PH 7.28 (7.31-7.41)
[2024-06-30] MEDS: AZITHROMYCIN 500 MG in SODIUM CHLORIDE 0.9% 250 ML IVPB SCH (18:03)
--- NOTE | 2024-06-30 18:09 | XR ---
EXAMINATION TYPE: XR chest 1V portable DATE OF EXAM: 06/30/2024 5:05 PM COMPARISON: Chest radiographs from 08/27/2023. CLINICAL INDICATION: Female, 63 years old with history of sob; TECHNIQUE: XR chest 1V portable Frontal view of the chest. FINDINGS: Lungs/Pleura: There is no evidence of pleural effusion, focal consolidation, or pneumothorax. Pulmonary vascularity: Unremarkable. Heart/mediastinum: Cardiomediastinal silhouette is unremarkable. Musculoskeletal: No acute osseous pathology. IMPRESSION: Bilateral lower lobe airspace opacities concerning for pneumonia. Atelectasis could also be considere d.e [facility], , 06/30/2024 6:07 PM
[2024-06-30 18:38] LABS: Acetaminophen <10.0 ug/mL; Salicylate <1.0 mg/dL
[2024-06-30] MEDS: ALBUTEROL NEBULIZED 2.5 MG/3 ML INHALATION SCH (19:10)
--- NOTE | 2024-06-30 19:14 | CT ---
EXAMINATION TYPE: CT brain wo con DATE OF EXAM: 06/30/2024 6:41 PM COMPARISON: None. CLINICAL INDICATION: Female, 63 years old with history of ams, AMS TECHNIQUE: Brain: Axial CT images of the brain were obtained with coronal and sagittal reformats created and rev iewed. Contrast used: None. Oral contrast used: None. CT DLP: 1171.4 mGycm, Automated exposure control for dose reduction was used. FINDINGS: Brain: Extra-axial spaces: No abnormal extra-axial fluid collections. Ventricular system: Within normal limits Cerebral parenchyma: No acute intraparenchymal hemorrhage or mass effect. The costa-white junction is well differentiated. Cerebellum: Unremarkable. Mass effect: No evidence of midline shift. Intracranial vasculature: Atherosclerotic calcifications of the intracranial vessels. Soft tissues: Normal. Calvarium/osseous structures: No depressed skull fracture. Paranasal sinuses and mastoid air cells: Mild scattered paranasal sinus disease. Rightward deviated n manohar septum. Visualized orbits: Orbital contents are intact. IMPRESSION: 1. No acute intracranial process. 2. Nonspecific white matter changes, likely secondary to chronic small vessel ischemic disease. [facility], , 06/30/2024 7:12 PM
[2024-06-30] MEDS: SODIUM CHLORIDE 0.9% 1,000 ML IV ONE (20:16)
[2024-06-30] MEDS: methylPREDNISolone SOD SUCCI 125 MG/2 ML VIAL IV SCH (23:10)
[2024-07-01] MEDS: SODIUM CHLORIDE 0.9% 500 ML 500 ML IV ONE (00:27)
[2024-07-01] MEDS: FUROSEMIDE 10 MG/ML 2 ML VIAL IV ONE (08:24)
[2024-07-01] MEDS: ASPIRIN 325 MG TAB PO SCH (08:24)
[2024-07-01 08:36] LABS: Mean Platelet Volume 12.6 fL (9.5-12.2); Platelet Count 152 10*3/uL (140-440)
--- NOTE | 2024-07-01 10:03 | P.HPIM ---
History of Present Illness This is a pleasant 63 years old female with past medical history of multiple medical problems Presents because of chest pain of 1 day duration which she describes as really bad about 8/10 in the middle of her chest radiating to the back nonspecific in character with no specific risks precipitating or relieving factors associated w ith some dyspnea and she has been having coughing for the last 2 days with some of blood small amount every day. She denies GI specific symptoms she has some headache but no dizziness weakness or numbness There is suspicion of palpitation on admission as well. Patient feels generally weak but no specific lateralization She smokes about 3 to 4 cigarettes/day and she was counseled to quit and she agrees and she wants a nicotine patch. No alcohol or illicit drugs. Also patient vomited 3 times yesterday but there was no blood in it. She is requiring more oxygen since yesterday she was on 4 L went up to 8 L/m, patient is not on oxygen at home and does not use CPAP/BiPAP at home Blood pressure is borderline 96/65. Patient sitting up in bed with no dizziness. WBC is elevated 22.9. Troponin elevated 2.1, 1.4 and 2.1. Venous pH is low at 7.28 and CO2 is within the reference range at 42. [place] [id number]. Salicylate and acetaminophen are negative less than 10 and 100. EKG showing sinus rhythm at [address]-T changes Chest x-ray showing bilateral lower infiltrates suspicious for CHF versus pneumonia Patient currently on heparin drip, ceftriaxone Zithromax Solu-Medrol 40 mg and aspirin 81 mg Review of Systems Review of systems CONSTITUTIONAL: No fever, no malaise, no fatigue. HEENT: No recent visual problems or hearing problems. Denied any sore throat. CARDIOVASCULAR: No orthopnea, PND, no syncope. PULMONARY: No chest wall tenderness, no hemoptysis. GASTROINTESTINAL: No diarrhea, no nausea, no abdominal pain. Normoactive bowel sounds. NEUROLOGICAL: No headaches, no weakness, no numbness. HEMATOLOGICAL: Denies any bleeding or petechiae. GENITOURINARY: Denies any burning micturition, frequency, or urgency. MUSCULOSKELETAL/RHEUMATOLOGICAL: Denies any joint pain, swelling, or any muscle pain. ENDOCRINE: Denies any polyuria or polydipsia. Past Medical History Past Medical History: COPD, Fibromyalgia, GERD/Reflux, Hypertension, Musculoskeletal Disorder, Osteoarthritis (OA), Thyroid Disorder, Vascular Disorder Additional Past Medical History / Comment(s): neuropathy, cysts on kidney-dr monitors, DDD, admission last year in [place] for "fluid around heart" History of Any Multi-Drug Resistant Organisms: None Reported Past Surgical History: Adenoidectomy, Section, Heart Catheterization, Tonsillectomy Additional Past Surgical History / Comment(s): C/S x3, polyp removed from vocal cord, colonoscopy Past Anesthesia/Blood Transfusion Reactions: No Reported Reaction Past Psychological History: Anxiety Smoking Status: Current every day smoker Past Alcohol Use History: Occasional Additional Past Alcohol Use History / Comment(s): <ppd since teens, trying to cut back Past Drug Use History: Marijuana Additional Drug Use History / Comment(s): occasional use - Past Family History Mother Sister(s) Family Medical History: Cancer Medications and Allergies Home Medications Medication Instructions Recorded Confirmed Type Aspirin 81 mg PO DAILY 02/24/17 06/30/24 History Budesonide/Formoterol Fumarate 2 puff INHALATION RT-BID 02/24/17 06/30/24 History [Symbicort 160-4.5 Mcg Inhaler] Clopidogrel [Plavix] 75 mg PO DAILY 02/24/17 06/30/24 History Gabapentin [Neurontin] 300 mg PO TID PRN 02/24/17 06/30/24 History amLODIPine [Norvasc] 2.5 mg PO DAILY 02/24/17 06/30/24 History carvediloL [Coreg] 3.125 mg PO BID 02/24/17 06/30/24 History methIMAzole [Tapazole] 5 mg PO DAILY 02/24/17 06/30/24 History Albuterol Inhaler [Ventolin Hfa 2 puff INHALATION RT-Q4H PRN 06/30/24 06/30/24 History Inhaler] Atorvastatin [Lipitor] 20 mg PO HS 06/30/24 06/30/24 History Meloxicam [Mobic] 7.5 mg PO DAILY 06/30/24 06/30/24 History Omeprazole 40 mg PO DAILY 06/30/24 06/30/24 History Allergies Allergy/AdvReac Type Severity Reaction Status Date / Time No Known Allergies Allergy Verified 06/30/24 17:09 Physical Exam Vitals: Vital Signs Temp Pulse Pulse Resp BP BP Pulse Ox 07/01/24 04:27 85 07/01/24 04:16 86 07/01/24 03:50 98 F 66 18 96/65 95 07/01/24 00:19 87 07/01/24 00:09 81 07/01/24 00:00 18 95 06/30/24 23:13 97.4 F L 76 19 94/66 97 06/30/24 21:06 97.4 F L 89 22 96/65 99 06/30/24 19:37 100 24 82/63 94 L 06/30/24 19:10 101 H 06/30/24 18:04 105 H 18 91/62 93 L 06/30/24 17:21 108 H 06/30/24 16:30 94 L 06/30/24 16:23 97.5 F L 102 H 18 104/64 82 L FiO2 07/01/24 04:27 07/01/24 04:16 07/01/24 03:50 07/01/24 00:19 07/01/24 00:09 07/01/24 00:00 06/30/24 23:13 06/30/24 21:06 06/30/24 19:37 06/30/24 19:10 75 06/30/24 18:04 06/30/24 17:21 06/30/24 16:30 06/30/24 16:23 Intake and Output 06/30/24 07/01/24 07/01/24 22:59 06:59 14:59 Intake Total 48.471 Balance 48.471 Intake: Intake, IV Titration 48.471 Amount Heparin Sod,Pork in 0.45% 48.471 NaCl 25,000 unit In 0.45 % NaCl 1 250ml.bag @ 12 UNITS/KG/HR 7.076 mls/hr IV .Q24H [facility] Rx#: [id number] Other: # Voids 0 Weight 58.967 kg 61.7 kg GENERAL: The patient is alert and oriented x3, not in any acute distress. Well developed, well nourished. HEENT: Pupils are round and equally reacting to light. EOMI. No scleral icterus. No conjunctival pallor. Normocephalic, atraumatic. No pharyngeal erythema. No thyromegaly. CARDIOVASCULAR: S1 and S2 present. No murmurs, rubs, or gallops. PULMONARY: Chest is clear to auscultation, no wheezing , no crackles. ABDOMEN: Soft, nontender, nondistended, normoactive bowel sounds. No palpable organomegaly. MUSCULOSKELETAL: No joint swelling or deformity. EXTREMITIES: No cyanosis, clubbing, or pedal edema. NEUROLOGICAL: Gross neurological examination did not reveal any focal deficits. SKIN: No rashes. no petechiae. Results CBC & Chem 7: 07/01/24 07:25 06/30/24 16:56 Labs: Abnormal Lab Results - Last 24 Hours (Table) 06/30/24 06/30/24 06/30/24 Range/Units 16:56 16:56 16:56 WBC 22.95 H (4.50-10.00) 10*3/uL Hgb 16.1 H (12.0-15.0) g/dL MCH 32.7 H (27.0-32.0) pg MPV (9.5-12.2) fL Immature Gran # 0.11 H (0.00-0.04) 10*3/uL Neutrophils # 17.87 H (1.80-7.70) 10*3/uL Monocytes # 1.45 H (0.20-1.00) 10*3/uL Eosinophils # 0.03 L (0.04-0.35) 10*3/uL APTT 31.3 H (22.0-30.0) sec VBG pH (7.31-7.41) VBG HCO3 (24-28) mmol/L Sodium 136 L (137-145) mmol/L Chloride 108 H (98-107) mmol/L Carbon Dioxide 16 L (22-30) mmol/L BUN 33 H (7-17) mg/dL Glucose 150 H (74-99) mg/dL Plasma Lactic Acid Mayo (0.7-2.0) mmol/L Total Bilirubin 1.4 H (0.2-1.3) mg/dL AST 42 H (14-36) U/L Troponin I (0.000-0.034) ng/mL 06/30/24 06/30/24 06/30/24 Range/Units 16:56 16:56 17:52 WBC (4.50-10.00) 10*3/uL Hgb (12.0-15.0) g/dL MCH (27.0-32.0) pg MPV (9.5-12.2) fL Immature Gran # (0.00-0.04) 10*3/uL Neutrophils # (1.80-7.70) 10*3/uL Monocytes # (0.20-1.00) 10*3/uL Eosinophils # (0.04-0.35) 10*3/uL APTT (22.0-30.0) sec VBG pH 7.28 L (7.31-7.41) VBG HCO3 21 L (24-28) mmol/L Sodium (137-145) mmol/L Chloride (98-107) mmol/L Carbon Dioxide (22-30) mmol/L BUN (7-17) mg/dL Glucose (74-99) mg/dL Plasma Lactic Acid Mayo 2.3 H* (0.7-2.0) mmol/L Total Bilirubin (0.2-1.3) mg/dL AST (14-36) U/L Troponin I 2.140 H* (0.000-0.034) ng/mL 06/30/24 06/30/24 06/30/24 Range/Units 20:05 23:38 23:38 WBC (4.50-10.00) 10*3/uL Hgb (12.0-15.0) g/dL MCH (27.0-32.0) pg MPV (9.5-12.2) fL Immature Gran # (0.00-0.04) 10*3/uL Neutrophils # (1.80-7.70) 10*3/uL Monocytes # (0.20-1.00) 10*3/uL Eosinophils # (0.04-0.35) 10*3/uL APTT 39.7 H (22.0-30.0) sec VBG pH (7.31-7.41) VBG HCO3 (24-28) mmol/L Sodium (137-145) mmol/L Chloride (98-107) mmol/L Carbon Dioxide (22-30) mmol/L BUN (7-17) mg/dL Glucose (74-99) mg/dL Plasma Lactic Acid Mayo (0.7-2.0) mmol/L Total Bilirubin (0.2-1.3) mg/dL AST (14-36) U/L Troponin I 1.440 H* 1.160 H* (0.000-0.034) ng/mL 07/01/ Range/Units 07:25 WBC (4.50-10.00) 10*3/uL Hgb (12.0-15.0) g/dL MCH (27.0-32.0) pg MPV 12.6 H (9.5-12.2) fL Immature Gran # (0.00-0.04) 10*3/uL Neutrophils # (1.80-7.70) 10*3/uL Monocytes # (0.20-1.00) 10*3/uL Eosinophils # (0.04-0.35) 10*3/uL APTT (22.0-30.0) sec VBG pH (7.31-7.41) VBG HCO3 (24-28) mmol/L Sodium (137-145) mmol/L Chloride (98-107) mmol/L Carbon Dioxide (22-30) mmol/L BUN (7-17) mg/dL Glucose (74-99) mg/dL Plasma Lactic Acid Mayo (0.7-2.0) mmol/L Total Bilirubin (0.2-1.3) mg/dL AST (14-36) U/L Troponin I (0.000-0.034) ng/mL Thrombosis Risk Factor Assmnt - Choose All That Apply Any of the Below Risk Factors Present?: Yes Each Factor Represents 1 point: Abnormal pulmonary function (COPD) Other Risk Factors: Yes Each Risk Factor Represents 2 Points: Age 61-74 years Other congenital or acquired thrombophilia - If yes, enter type in comment: No Thrombosis Risk Factor Assessment Total Risk Factor Score: 3 Thrombosis Risk Factor Assessment Level: Moderate Risk Assessment and Plan Assessment: Non-STEMI Metabolic acidosis with low pH 7.28 on admission Acute CHF exacerbation COPD exacerbation Possible pneumonia cannot be ruled out Nicotine dependence Generalized weakness secondary to above Leukocytosis Plan: Continue with heparin drip Continue with aspirin Continue with IV Solu-Medrol Patient antibiotics ceftriaxone and Zithromax Check procalcitonin Cardiology team consult Pulmonary team consult Labs and medication were reviewed.. Continue same treatment. Continue with symptomatic treatment. Resume home medication. Monitor labs and vitals. DVT and GI prophylaxis. Further recommendations as per clinical course of the patient DVT prophylaxis: heparin GI Prophylaxis: Ppi PT/OT: Pending Prognosis is guarded
[2024-07-01] MEDS: LORazepam 1 MG/0.5 ML VIAL IV PRN (10:06)
[2024-07-01 10:12] LABS: Appearance,Urine Clear (Clear); Bilirubin,Urine Negative (Negative); Blood,Urine Negative (Negative); Color,Urine Colorless; Glucose,Urine (UA) Negative (Negative); Ketones,Urine Negative (Negative); Leukocyte Esterase,Urine Negative (Negative); Nitrite,Urine Negative (Negative); PH, Urine 5.5 (5.0-8.0); Protein,Urine Negative (Negative); Urobilinogen,Urine <2.0 mg/dL (<2.0)
[2024-07-01] MEDS: NICOTINE 14MG/24HR PATCH TRANSDERM SCH (10:14)
[2024-07-01] MEDS: PANTOPRAZOLE 40 MG/10 ML VIAL IVP SCH (10:14)
--- NOTE | 2024-07-01 10:37 | P.CRDCN ---
History of Present Illness Consult date: 07/01/24 Consult reason: congestive heart failure History of present illness: This is Kaden Faria NP, I'm dictating on behalf of Dr. Hernández's H&P and A&P The patient was interviewed and examined. HPI: Patient is a pleasant 63-year-old female who is a patient of Dr. Nowak with a past medical history that includes COPD, fibromyalgia, GERD, hyperte nsion, osteoarthritis, hypothyroidism, peripheral vascular disease, who was transferred from an outside facility for evaluation regarding CHF with elevated troponin, suspected PE versus CHF. Patient reports that she had shortness of breath that developed yesterday. Patient discovered that her son had recently, and has been having a significantly difficult time dealing with it. Patient was found to be significantly hypoxic upon arrival to the emergency department. She was started on supplemental oxygen. Transferring paperwork was reviewed which showed elevated troponin, CT scan showed no pulmonary embolism or evidence of congestive heart failure. EKG completed here demonstrated nonspecific T wave abnormalities with no significant evidence of ischemia. Chest x-ray was consistent with possible pneumonia. Lab work showed an elevated white blood cell count. The patient was subsequently admitted for further treatment of possible pneumonia, and cardiology was consulted for the elevated troponins and possible CHF. Office records are reviewed from 03/21/2024 which shows an EKG with similar T wave abnormalities when compared to current EKGs. Patient had a dobutamine stress echo that showed an abnormal stress test by EKG criteria but a negative dobutamine stress echo. This morning upon evaluation the patient reports that she is breathing better today. She is denying any chest pain or heart palpitations. ROS: [No fever, chills, or rigors] [no cough, phlegm, or expectoration] [no nausea, vomiting, or diarrhea] [no hematuria, dysuria] [no musculoskelatal complaints] [no strokes or seizures] [no skin lesions] EXAMINATION: GENERAL: Well-appearing, well-nourished and in no acute distress. NECK: Supple without JVD or thyromegaly. LUNGS: Breath sounds diminished to auscultation bilaterally. Respiration equal and unlabored. No wheezes, rales or rhonchi. HEART: Regular rate and rhythm without murmurs, rubs or gallops. S1 and S2 heard. EXTREMITIES: Normal range of motion, no edema. No clubbing or cyanosis. Peripheral pulses intact and strong. REVIEW OF LABS, ECG & MEDICAL DATA: LABS: White count 22.9, hemoglobin 16.1, platelets 219, sodium 136, potassium 5.1, chloride 108, BUN 33, creatinine 0.68, magnesium 1.9, troponin x 3-2.14, 1.44, 1.16 EKG: Sinus mechanism with nonspecific T wave abnormalities. IMAGING: Chest x-ray dated 06/30/2024 demonstrates bilateral lower lobe airspace opacities concerning for pneumonia, atelectasis could also be considered. CT of the brain without contrast dated 06/30/2024 demonstrates no acute intracranial process, nonspecific white matter changes, likely secondary to chronic small vessel ischemic disease. VITALS: Pulse 84, respirations 18, blood pressure 94/55, O2 saturation 93% on 8 L IMPRESSION: 1. Elevated troponins, downtrending, possibly type II WA secondary to hypoxia 2. Bilateral lower lobe pneumonia 3. Acute hypoxic respiratory failure 4. COPD PLAN: Continue to hold amlodipine. Obtain echocardiogram. Will consider changing carvedilol to metoprolol when blood pressure begins to improve. Takotsubo cardiomyopathy is in the differential secondary to the patient's sudden loss of her son with severe anxiety and grief. Further recommendations based on patient's clinical course. Thank you for the consult and allowing us to participate in the care of this patient. Past Medical History Past Medical History: COPD, Fibromyalgia, GERD/Reflux, Hypertension, Musculoskeletal Disorder, Osteoarthritis (OA), Thyroid Disorder, Vascular Disorder Additional Past Medical History / Comment(s): neuropathy, cysts on kidney-dr fischer onitors, DDD, admission last year in [place] for "fluid around heart" History of Any Multi-Drug Resistant Organisms: None Reported Past Surgical History: Adenoidectomy, Section, Heart Catheterization, Tonsillectomy Additional Past Surgical History / Comment(s): C/S x3, polyp removed from vocal cord, colonoscopy Past Anesthesia/Blood Transfusion Reactions: No Reported Reaction Past Psychological History: Anxiety Smoking Status: Current every day smoker Past Alcohol Use History: Occasional Additional Past Alcohol Use History / Comment(s): <ppd since teens, trying to cut back Past Drug Use History: Marijuana Additional Drug Use History / Comment(s): occasional use - Past Family History Mother Sister(s) Family Medical History: Cancer Medications and Allergies Home Medications Medication Instructions Recorded Confirmed Type Aspirin 81 mg PO DAILY 02/24/17 06/30/24 History Budesonide/Formoterol Fumarate 2 puff INHALATION RT-BID 02/24/17 06/30/24 History [Symbicort 160-4.5 Mcg Inhaler] Clopidogrel [Plavix] 75 mg PO DAILY 02/24/17 06/30/24 History Gabapentin [Neurontin] 300 mg PO TID PRN 02/24/17 06/30/24 History amLODIPine [Norvasc] 2.5 mg PO DAILY 02/24/17 06/30/24 History carvediloL [Coreg] 3.125 mg PO BID 02/24/17 06/30/24 History methIMAzole [Tapazole] 5 mg PO DAILY 02/24/17 06/30/24 History Albuterol Inhaler [Ventolin Hfa 2 puff INHALATION RT-Q4H PRN 06/30/24 06/30/24 History Inhaler] Atorvastatin [Lipitor] 20 mg PO HS 06/30/24 06/30/24 History Meloxicam [Mobic] 7.5 mg PO DAILY 06/30/24 06/30/24 History Omeprazole 40 mg PO DAILY 06/30/24 06/30/24 History Allergies Allergy/AdvReac Type Severity Reaction Status Date / Time No Known Allergies Allergy Verified 06/30/24 17:09 Physical Exam Vitals: Vital Signs Temp Pulse Pulse Resp BP BP Pulse Ox 07/01/24 09:22 90 07/01/24 09:11 98 07/01/24 09:09 92 07/01/24 04:27 85 07/01/24 04:16 86 07/01/24 03:50 98 F 66 18 96/65 95 07/01/24 00:19 87 07/01/24 00:09 81 07/01/24 00:00 18 95 06/30/24 23:13 97.4 F L 76 19 94/66 97 06/30/24 21:06 97.4 F L 89 22 96/65 99 06/30/24 19:37 100 24 82/63 94 L 06/30/24 19:10 101 H 06/30/24 18:04 105 H 18 91/62 93 L 06/30/24 17:21 108 H 06/30/24 16:30 94 L 06/30/24 16:23 97.5 F L 102 H 18 104/64 82 L FiO2 07/01/24 09:22 07/01/24 09:11 07/01/24 09:09 07/01/24 04:27 07/01/24 04:16 07/01/24 03:50 07/01/24 00:19 07/01/24 00:09 07/01/24 00:00 06/30/24 23:13 06/30/24 21:06 06/30/24 19:37 06/30/24 19:10 75 06/30/24 18:04 06/30/24 17:21 06/30/24 16:30 06/30/24 16:23 Intake and Output 06/30/24 07/01/24 07/01/24 22:59 06:59 14:59 Intake Total 48.471 Balance 48.471 Intake: Intake, IV Titration 48.471 Amount Heparin Sod,Pork in 0.45% 48.471 NaCl 25,000 unit In 0.45 % NaCl 1 250ml.bag @ 12 UNITS/KG/HR 7.076 mls/hr IV .Q24H [facility] Rx#: [id number] Other: # Voids 0 Weight 58.967 kg 61.7 kg Results 07/01/24 07:25 06/30/24 16:56 Cardiac Enzymes 06/30/24 06/30/24 06/30/24 Range/Units 16:56 16:56 20:05 AST 42 H (14-36) U/L Troponin I 2.140 H* 1.440 H* (0.000-0.034) ng/mL 06/30/24 Range/Units 23:38 AST (14-36) U/L Troponin I 1.160 H* (0.000-0.034) ng/mL Coagulation 06/30/24 06/30/24 06/30/24 Range/Units 16:56 18:14 23:38 PT 11.5 (10.0-12.5) sec APTT 31.3 H 28.7 39.7 H (22.0-30.0) sec 07/01/24 Range/Units 07:25 PT (10.0-12.5) sec APTT 53.9 H (22.0-30.0) sec CBC 06/30/24 07/01/24 Range/Units 16:56 07:25 WBC 22.95 H (4.50-10.00) 10*3/uL RBC 4.93 (4.10-5.20) 10*6/uL Hgb 16.1 H (12.0-15.0) g/dL Hct 46.1 (37.2-46.3) % Plt Count 219 152 (140-440) 10*3/uL Comprehensive Metabolic Panel 06/30/24 Range/Units 16:56 Sodium 136 L (137-145) mmol/L Potassium 5.1 (3.5-5.1) mmol/L Chloride 108 H (98-107) mmol/L Carbon Dioxide 16 L (22-30) mmol/L BUN 33 H (7-17) mg/dL Creatinine 0.68 (0.52-1.04) mg/dL Glucose 150 H (74-99) mg/dL Calcium 9.4 (8.4-10.2) mg/dL AST 42 H (14-36) U/L ALT 26 (4-34) U/L Alkaline Phosphatase 88 (38-126) U/L Total Protein 6.8 (6.3-8.2) g/dL Albumin 4.4 (3.5-5.0) g/dL Current Medications Generic Name Dose Route Start Last Admin Trade Name Freq PRN Reason Stop Dose Admin Albuterol Sulfate 2.5 mg 06/30/24 20:00 07/01/24 09:08 Albuterol Nebulized 2.5 Mg/3 Ml INHALATION 2.5 mg RT-Q4H MAURICIO Administration Aspirin 325 mg 07/01/24 09:00 07/01/24 08:24 Aspirin 325 Mg Tab PO 325 mg DAILY MAURICIO Administration Atorvastatin Calcium 80 mg 06/30/24 17:30 07/01/24 08:24 Atorvastatin 80 Mg Tab PO 80 mg DAILY MAURICIO Administration Furosemide 20 mg 07/01/24 21:00 Furosemide 10 Mg/Ml 2 Ml Vial IV Q12HR MAURICIO Sodium Chloride 1,000 mls @ 25 mls/hr 06/30/24 16:30 07/01/24 08:25 Saline 0.9% IV 25 mls/hr .Q24H MAURICIO Administration Heparin Sodium/Sodium Chloride 250 mls @ 7.076 mls/hr 06/30/24 17:30 07/01/24 00:27 25,000 unit/ Sodium Chloride IV 14 units/kg/hr .Q24H MAURICIO 8.255 mls/hr Titration Protocol 12 UNITS/KG/HR Ceftriaxone Sodium 2 gm/ 50 mls @ 100 mls/hr 06/30/24 17:45 07/01/24 08:24 Sodium Chloride IVPB 100 mls/hr Q24HR MAURICIO Administration Protocol Azithromycin 500 mg/ Sodium 250 mls @ 250 mls/hr 06/30/24 18:00 06/30/24 18:03 Chloride IVPB 07/02/24 18:59 250 mls/hr DAILY@1800 MAURICIO Administration Protocol Lorazepam 0.5 mg 06/30/24 23:57 07/01/24 10:06 Lorazepam 1 Mg/0.5 Ml Vial IV 0.5 mg Q4HR PRN Administration Anxiety Methylprednisolone Sodium Succinate 60 mg 07/01/24 00:00 07/01/24 06:10 Methylprednisolone Sod Succi 125 Mg/2 Ml Vial IV 60 mg Q6HR MAURICIO Administration Morphine Sulfate 4 mg 06/30/24 17:18 Morphine Sulfate 4 Mg/Ml Syringe IV Q4HR PRN Chest Pain Nicotine 1 patch 07/01/24 10:15 07/01/24 10:14 Nicotine 14mg/24hr Patch TRANSDERM 1 patch DAILY MAURICIO Administration Pantoprazole Sodium 40 mg 07/01/24 10:15 07/01/24 10:14 Pantoprazole 40 Mg/10 Ml Vial IVP 40 mg BID MAURICIO Administration Intake and Output 06/30/24 07/01/24 07/01/24 22:59 06:59 14:59 Intake Total 48.471 Balance 48.471 Intake: Intake, IV Titration 48.471 Amount Heparin Sod,Pork in 0.45% 48.471 NaCl 25,000 unit In 0.45 % NaCl 1 250ml.bag @ 12 UNITS/KG/HR 7.076 mls/hr IV .Q24H [facility] Rx#: [id number] Other: # Voids 0 Weight 58.967 kg 61.7 kg 07/01/24 07:25 06/30/24 16:56
[2024-07-01] MEDS ORDERED: DEXTROSE 50% SYRINGE 50 ML IVP PRN ×2 (11:46)
--- NOTE | 2024-07-01 12:12 | P.CNPUL ---
History of Present Illness Consult date: 07/01/24 Requesting physician: Paul E Sheet Reason for consult: dyspnea, cough Chief complaint: Chest pain History of present illness: This is a 62-year-old female with known history of COPD, not O2 dependent and not prednisone dependent, tobacco dependence syndrome, history of fibromyalgia, hypertension, hypothyroidism, patient was seen yesterday at [facility] with an acute episode of chest pain. Patient had a CT of the chest that showed mostly congestive heart failure, patient was transferred to [facility], apparently she recently discovered that her son had recently. And she is having difficulty coping with the situation. In the emergency room patient was noted to be hypoxic upon arrival, she was placed on supplemental oxygen, CT of the chest done at [place] showed no evidence of pulmonary embolism but did show evidence of interstitial edema. EKG showed nonspecific T wave abnormalities, chest x-ray in our institution showed evidence of interstitial edema, doubt underlying pneumonia and it is felt to be less likely considering the clinical history and considering the chest x-ray findings. At any rate patient was found to have elevated troponin levels significantly elevated BNP level, and so far she has been seen by cardiology on consultation, placed on heparin and I recommended diuretics. Patient is now on 7 L high flow nasal cannula O2 saturation is 98%. Admitting physician placed the patient empirically on antibiotics, again index of suspicion for pneumonia is rather low but she is on ceftriaxone and Zithromax, procalcitonin level is pending if normal will discontinue antibiotics in the next 24 hours. Patient does have intermittent episodes of cough with blood-tinged sputum, presently on heparin as recommended by cardiology for her elevated troponin. Review of Systems CONSTITUTIONAL: No fever, no malaise, no fatigue. HEENT: No recent visual problems or hearing problems. Denied any sore throat. CARDIOVASCULAR: As noted in HPI PULMONARY: As noted in HPI GASTROINTESTINAL: No diarrhea, no nausea, no abdominal pain. Normoactive bowel sounds. NEUROLOGICAL: No headaches, no weakness, no numbness. HEMATOLOGICAL: Denies any bleeding or petechiae. GENITOURINARY: Denies any burning micturition, frequency, or urgency. MUSCULOSKELETAL/RHEUMATOLOGICAL: Patient does have history of fibromyalgia ENDOCRINE: Denies any polyuria or polydipsia. Past Medical History Past Medical History: COPD, Fibromyalgia, GERD/Reflux, Hypertension, Musculoskeletal Disorder, Osteoarthritis (OA), Thyroid Disorder, Vascular Disorder Additional Past Medical History / Comment(s): neuropathy, cysts on kidney-dr monitors, DDD, admission last year in [place] for "fluid around heart" History of Any Multi-Drug Resistant Organisms: None Reported Past Surgical History: Adenoidectomy, Section, Heart Catheterization, Tonsillectomy Additional Past Surgical History / Comment(s): C/S x3, polyp removed from vocal cord, colonoscopy Past Anesthesia/Blood Transfusion Reactions: No Reported Reaction Past Psychological History: Anxiety Smoking Status: Current every day smoker Past Alcohol Use History: Occasional Additional Past Alcohol Use History / Comment(s): <ppd since teens, trying to cut back Past Drug Use History: Marijuana Additional Drug Use History / Comment(s): occasional use - Past Family History Mother Sister(s) Family Medical History: Cancer Medications and Allergies Home Medications Medication Instructions Recorded Confirmed Type Aspirin 81 mg PO DAILY 02/24/17 06/30/24 History Budesonide/Formoterol Fumarate 2 puff INHALATION RT-BID 02/24/17 06/30/24 History [Symbicort 160-4.5 Mcg Inhaler] Clopidogrel [Plavix] 75 mg PO DAILY 02/24/17 06/30/24 History Gabapentin [Neurontin] 300 mg PO TID PRN 02/24/17 06/30/24 History amLODIPine [Norvasc] 2.5 mg PO DAILY 02/24/17 06/30/24 History carvediloL [Coreg] 3.125 mg PO BID 02/24/17 06/30/24 History methIMAzole [Tapazole] 5 mg PO DAILY 02/24/17 06/30/24 History Albuterol Inhaler [Ventolin Hfa 2 puff INHALATION RT-Q4H PRN 06/30/24 06/30/24 History Inhaler] Atorvastatin [Lipitor] 20 mg PO HS 06/30/24 06/30/24 History Meloxicam [Mobic] 7.5 mg PO DAILY 06/30/24 06/30/24 History Omeprazole 40 mg PO DAILY 06/30/24 06/30/24 History Allergies Allergy/AdvReac Type Severity Reaction Status Date / Time No Known Allergies Allergy Verified 06/30/24 17:09 Physical Exam Vitals: Vital Signs Temp Pulse Pulse Resp BP BP Pulse Ox 07/01/24 10:28 66 18 07/01/24 09:22 90 07/01/24 09:11 98 07/01/24 09:09 92 07/01/24 08:00 84 18 94/55 93 L 07/01/24 04:27 85 07/01/24 04:16 86 07/01/24 03:50 98 F 66 18 96/65 95 07/01/24 00:19 87 07/01/24 00:09 81 07/01/24 00:00 18 95 06/30/24 23:13 97.4 F L 76 19 94/66 97 06/30/24 21:06 97.4 F L 89 22 96/65 99 06/30/24 19:37 100 24 82/63 94 L 06/30/24 19:10 101 H 06/30/24 18:04 105 H 18 91/62 93 L 06/30/24 17:21 108 H 06/30/24 16:30 94 L 06/30/24 16:23 97.5 F L 102 H 18 104/64 82 L FiO2 07/01/24 10:28 07/01/24 09:22 07/01/24 09:11 07/01/24 09:09 07/01/24 08:00 07/01/24 04:27 07/01/24 04:16 07/01/24 03:50 07/01/24 00:19 07/01/24 00:09 07/01/24 00:00 06/30/24 23:13 06/30/24 21:06 06/30/24 19:37 06/30/24 19:10 75 06/30/24 18:04 06/30/24 17:21 06/30/24 16:30 06/30/24 16:23 Intake and Output 06/30/24 07/01/24 07/01/24 22:59 06:59 14:59 Intake Total 48.471 120 Balance 48.471 120 Intake: Intake, IV Titration 48.471 Amount Heparin Sod,Pork in 0.45% 48.471 NaCl 25,000 unit In 0.45 % NaCl 1 250ml.bag @ 12 UNITS/KG/HR 7.076 mls/hr IV .Q24H [facility] Rx#: [id number] Oral 120 Other: # Voids 0 Weight 58.967 kg 61.7 kg General: Revealed a 63-year-old female anxious, tearful, in no distress. Very pleasant. Skin: Skin is warm and dry and no rashes or lesions are noted. Eye: Pupils are equal, round and reactive to light, extra-ocular movements are intact; there is normal conjunctiva bilaterally. Ears, nose, mouth and throat: There are moist mucous membranes and no oral lesions. Neck: The neck is supple, there is no tenderness or JVD. Cardiovascular: There is a regular rate and rhythm. No murmur, rub or gallop is appreciated. Respiratory: Crackles at the bases no rhonchi no wheezes Gastrointestinal: Soft, non-distended, non-tender abdomen without masses or organomegaly noted. There is no rebound or guarding present. Bowel sounds are unremarkable. Back: There is no tenderness to palpation in the midline. There is no obvious deformity. Musculoskeletal: Normal ROM, no tenderness, There is no pedal edema. There is no calf tenderness or swelling. No cords were appreciated. Neurological: CN II-XII intact, Cranial nerves III through XII are intact. There are no obvious motor or sensory deficits. Coordination appears grossly intact. Speech is normal. Psychiatric: Anxious, cooperative, appropriate mood & affect, normal judgment. Results - Laboratory Findings CBC and BMP: 07/01/24 07:25 06/30/24 16:56 PT/INR, D-dimer PT 11.5 sec (10.0-12.5) 06/30/24 16:56 INR 1.1 (<1.2) 06/30/24 16:56 Abnormal lab findings: Abnormal Labs 06/30/24 06/30/24 06/30/24 16:56 16:56 16:56 WBC 22.95 H Hgb 16.1 H MCH 32.7 H MPV Immature Gran # 0.11 H Neutrophils # 17.87 H Monocytes # 1.45 H Eosinophils # 0.03 L APTT 31.3 H VBG pH VBG HCO3 Sodium 136 L Chloride 108 H Carbon Dioxide 16 L BUN 33 H Glucose 150 H Plasma Lactic Acid Mayo Total Bilirubin 1.4 H AST 42 H Troponin I 06/30/24 06/30/24 06/30/24 16:56 16:56 17:52 WBC Hgb MCH MPV Immature Gran # Neutrophils # Monocytes # Eosinophils # APTT VBG pH 7.28 L VBG HCO3 21 L Sodium Chloride Carbon Dioxide BUN Glucose Plasma Lactic Acid Mayo 2.3 H* Total Bilirubin AST Troponin I 2.140 H* 06/30/24 06/30/24 06/30/24 20:05 23:38 23:38 WBC Hgb MCH MPV Immature Gran # Neutrophils # Monocytes # Eosinophils # APTT 39.7 H VBG pH VBG HCO3 Sodium Chloride Carbon Dioxide BUN Glucose Plasma Lactic Acid Mayo Total Bilirubin AST Troponin I 1.440 H* 1.160 H* 07/01/24 07/01/24 07:25 07:25 WBC Hgb MCH MPV 12.6 H Immature Gran # Neutrophils # Monocytes # Eosinophils # APTT 53.9 H VBG pH VBG HCO3 Sodium Chloride Carbon Dioxide BUN Glucose Plasma Lactic Acid Mayo Total Bilirubin AST Troponin I - Diagnostic Findings Chest x-ray: image reviewed (As noted in HPI chest x-ray is suggestive of pulmonary edema underlying pneumonia is not entirely ruled out.) Assessment and Plan Assessment: Impression: Acute hypoxic respiratory failure Acute non-ST elevation myocardial infarction Acute congestive heart failure, ejection fraction is unknown Possible pneumonia however my index of suspicion for pneumonia is extremely low procalcitonin level is pending and follow-up chest x-ray will be done in the next 24 hours after a good course of diuresis if improved with diuretics that favors CHF versus pneumonia. The clinical history and the presentation is more of a cardiac presentation than a pulmonary presentation. History of underlying COPD Tobacco dependence syndrome Recommendation: Continue heparin for now Continue bronchodilators including Solu-Medrol and updrafts Continue Rocephin and Zithromax empirically and discontinue if procalcitonin level is normal Continue diuretics and repeat chest x-ray in 24 hours Continue GI prophylaxis/PPI Will continue to follow. Time with Patient: Greater than 30
[2024-07-01 16:28] LABS: Glucose,Whole Blood 211 mg/dL (70-110)
[2024-07-01] MEDS: INSULIN LISPRO (HumaLOG) 100 UNIT/ML 10 mL VL SQ SCH (16:43)
[2024-07-01 16:49] LABS: Chol/HDL Ratio 2.68 Ratio; LDL Cholesterol,Calculated 65.7 mg/dL (0.0-131.0)
[2024-07-01 19:29] LABS: Glucose,Whole Blood 183 mg/dL (70-110)
[2024-07-01] MEDS: FUROSEMIDE 10 MG/ML 2 ML VIAL IV SCH (20:18)
[2024-07-02 06:08] LABS: Glucose,Whole Blood 122 mg/dL (70-110)
[2024-07-02 07:28] LABS: Basophils # (A) 0.03 10*3/uL (0.00-0.10); Basophils % (A) 0.1 %; HGB 13.4 g/dL (12.0-15.0); Lymphocytes # (A) 1.05 10*3/uL (0.90-5.00); Lymphocytes % (A) 4.8 %; MCH 32.5 pg (27.0-32.0); MCHC 34.4 g/dL (32.0-37.0); MCV 94.7 fL (80.0-97.0); Monocytes # (A) 0.58 10*3/uL (0.20-1.00); Monocytes % (A) 2.7 %; Neutrophils # (A) 20.01 10*3/uL (1.80-7.70); Neutrophils % (A) 91.8 %; Platelet Count 153 10*3/uL (140-440); RBC 4.12 10*6/uL (4.10-5.20); RDW 12.4 % (11.5-14.5); WBC 21.81 10*3/uL (4.50-10.00)
[2024-07-02 07:41] LABS: African American GFR (CKD) >90 (>60 ml/min/1.73 sqM); Anion Gap 9 mmol/L; Blood Urea Nitrogen 33 mg/dL (7-17); Calcium 9.3 mg/dL (8.4-10.2); Carbon Dioxide 24 mmol/L (22-30); Chloride 109 mmol/L (98-107); Glucose 132 mg/dL (74-99); Non-African American GFR(CKD) 82 (>60 ml/min/1.73 sqM); Potassium 3.6 mmol/L (3.5-5.1); Sodium 142 mmol/L (137-145)
[2024-07-02] MEDS: ACETAMINOPHEN TAB 325 MG TAB PO PRN (08:23)
[2024-07-02] MEDS ORDERED: ASPIRIN 81 MG PO SCH (09:00)
--- NOTE | 2024-07-02 09:02 | P.PN ---
Subjective This is a pleasant 63 years old female with past medical history of multiple medical problems Presents because of chest pain of 1 day duration which she describes as really bad about 8/10 in the middle of her chest radiating to the back nonspecific in character with no specific risks precipitating or relieving factors associated with some dyspnea and she has been having coughing for the last 2 days with some of blood small amount every day. She denies GI specific symptoms she has some headache but no dizziness weakness or numbness There is suspicion of palpitation on admission as well. Patient feels generally weak but no specific lateralization She smokes about 3 to 4 cigarettes/day and she was counseled to quit and she agrees and she wants a nicotine patch. No alcohol or illicit drugs. Also patient vomited 3 times yesterday but there was no blood in it. She is requiring more oxygen since yesterday she was on 4 L went up to 8 L/m, patient is not on oxygen at home and does not use CPAP/BiPAP at home Blood pressure is borderline 96/65. Patient sitting up in bed with no dizziness. WBC is elevated 22.9. Troponin elevated 2.1, 1.4 and 2.1. Venous pH is low at 7.28 and CO2 is within the reference range at 42. [place] [id number]. Salicylate and acetaminophen are negative less than 10 and 100. EKG showing sinus rhythm at [address]-T changes Chest x-ray showing bilateral lower infiltrates suspicious for CHF versus pneumonia Patient currently on heparin drip, ceftriaxone Zithromax Solu-Medrol 40 mg and aspirin 81 mg 07/02 Patient today complains from headache Her breathing is better, currently on room air Still on heparin drip but cardiology planning to discontinue it and placed on subcutaneous heparin Also patient is on aspirin and Plavix was added today. Patient had few beats of SVT. No chest pain Used BiPAP machine last night Check procalcitonin is low less than 0.02 Review of systems GASTROINTESTINAL: No diarrhea, no nausea, no vomiting, no abdominal pain. Normoactive bowel sounds. NEUROLOGICAL: No headaches, no weakness, no numbness. HEMATOLOGICAL: Denies any bleeding or petechiae. GENITOURINARY: Denies any burning micturition, frequency, or urgency. MUSCULOSKELETAL/RHEUMATOLOGICAL: Denies any joint pain, swelling, or any muscle pain. ENDOCRINE: Denies any polyuria or polydipsia. Active Medications Generic Name Dose Route Start Last Admin Trade Name Freq PRN Reason Stop Dose Admin Acetaminophen 650 mg 07/02/24 08:13 07/02/24 08:23 Acetaminophen Tab 325 Mg Tab PO 650 mg Q6HR PRN Administration Fever and/ or Mild Pain Albuterol Sulfate 2.5 mg 06/30/24 20:00 07/02/24 04:53 Albuterol Nebulized 2.5 Mg/3 Ml INHALATION Not Given RT-Q4H [facility] Aspirin 81 mg 07/03/24 09:00 Aspirin 81 Mg PO DAILY [facility] Atorvastatin Calcium 80 mg 06/30/24 17:30 07/02/24 08:24 Atorvastatin 80 Mg Tab PO 80 mg DAILY [facility] Administration Budesonide/Formoterol Fumarate 2 puff 07/02/24 20:00 Symbicort 160-4.5 Mcg Inhaler INHALATION RT-BID [facility] Clopidogrel Bisulfate 75 mg 07/02/24 09:00 Clopidogrel 75 Mg Tab PO DAILY [facility] Dextrose/Water 25 ml 07/01/24 11:46 Dextrose 50% Syringe 50 Ml IVP PER PROTOCOL PRN Hypoglycemia Protocol Dextrose/Water 50 ml 07/01/24 11:46 Dextrose 50% Syringe 50 Ml IVP PER PROTOCOL PRN Hypoglycemia Protocol Furosemide 20 mg 07/03/24 09:00 Furosemide 20 Mg Tab PO DAILY [facility] Gabapentin 300 mg 07/02/24 08:41 Gabapentin 300 Mg Cap PO TID PRN Pain Heparin Sodium (Porcine) 5,000 unit 07/02/24 09:00 Heparin Sodium,Porcine 5,000 Unit/Ml 1 Ml Vial SQ Q12HR [facility] Sodium Chloride 1,000 mls @ 25 mls/hr 06/30/24 16:30 07/01/24 08:25 Saline 0.9% IV 25 mls/hr .Q24H [facility] Administration Ceftriaxone Sodium 2 gm/ 50 mls @ 100 mls/hr 06/30/24 17:45 07/02/24 08:24 Sodium Chloride IVPB 100 mls/hr Q24HR [facility] Administration Protocol Azithromycin 500 mg/ Sodium 250 mls @ 250 mls/hr 06/30/24 18:00 07/01/24 16:46 Chloride IVPB 07/02/24 18:59 250 mls/hr DAILY@1800 [facility] Administration Protocol Insulin Human Lispro 0 unit 07/01/24 17:30 07/02/24 06:21 Insulin Lispro (Humalog) 100 Unit/Ml 10 Ml Vl SQ Not Given ACHS [facility] Protocol Lorazepam 0.5 mg 07/01/24 12:55 Lorazepam 0.5 Mg Tab PO Q4HR PRN Anxiety Methimazole 5 mg 07/02/24 09:00 Methimazole 5 Mg Tab PO DAILY [facility] Methylprednisolone Sodium Succinate 60 mg 07/01/24 00:00 07/02/24 06:33 Methylprednisolone Sod Succi 125 Mg/2 Ml Vial IV 60 mg Q6HR [facility] Administration Metoprolol Tartrate 12.5 mg 07/02/24 09:00 Metoprolol Tartrate 12.5 Mg Tab PO BID [facility] Morphine Sulfate 4 mg 06/30/24 17:18 Morphine Sulfate 4 Mg/Ml Syringe IV Q4HR PRN Chest Pain Nicotine 1 patch 07/01/24 10:15 07/02/24 08:24 Nicotine 14mg/24hr Patch TRANSDERM 1 patch DAILY [facility] Administration Pantoprazole Sodium 40 mg 07/01/24 10:15 07/02/24 08:25 Pantoprazole 40 Mg/10 Ml Vial IVP 40 mg BID [facility] Administration Objective - Vital Signs Vital signs: Vital Signs Temp 97.8 F 07/02/24 03:48 Pulse 86 07/02/24 03:48 Resp 18 07/02/24 06:34 BP 91/52 07/02/24 03:48 Pulse Ox 95 07/02/24 06:34 FiO2 75 06/30/24 19:10 Intake & Output 07/01/24 07/02/24 07/02/24 18:59 06:59 18:59 Intake Total 360 423.529 Output Total 300 Balance 360 -300 423.529 Weight 61.7 kg 61.5 kg Intake: Intake, IV Titration 201.529 Amount Heparin Sod,Pork in 0.45% 201.529 NaCl 25,000 unit In 0.45 % NaCl 1 250ml.bag @ 12 UNITS/KG/HR 7.076 mls/hr IV .Q24H [facility] Rx#: [id number] Oral 360 222 Output: Urine 300 Other: # Voids 1 1 - Exam -GENERAL: The patient is alert and oriented x3, not in any acute distress. Well developed, well nourished. Lethargic and tired HEENT: Pupils are round and equally reacting to light. EOMI. No scleral icterus. No conjunctival pallor. Normocephalic, atraumatic. No pharyngeal erythema. No thyromegaly. CARDIOVASCULAR: S1 and S2 present. No murmurs, rubs, or gallops. PULMONARY: Chest is clear to auscultation, no wheezing , no crackles. ABDOMEN: Soft, nontender, nondistended, normoactive bowel sounds. No palpable organomegaly. MUSCULOSKELETAL: No joint swelling or deformity. EXTREMITIES: No cyanosis, clubbing, or pedal edema. NEUROLOGICAL: Gross neurological examination did not reveal any focal deficits. SKIN: No rashes. no petechiae. - Labs CBC & Chem 7: 07/02/24 06:34 07/02/24 06:34 Labs: Abnormal Lab Results - Last 24 Hours (Table) 07/01/24 07/01/24 07/02/24 Range/Units 16:26 19:27 06:05 WBC (4.50-10.00) 10*3/uL MCH (27.0-32.0) pg MPV (9.5-12.2) fL Immature Gran # (0.00-0.04) 10*3/uL Neutrophils # (1.80-7.70) 10*3/uL Eosinophils # (0.04-0.35) 10*3/uL APTT (22.0-30.0) sec Chloride (98-107) mmol/L BUN (7-17) mg/dL Glucose (74-99) mg/dL POC Glucose (mg/dL) 211 H 183 H 122 H (70-110) mg/dL 07/02/24 07/02/24 07/02/24 Range/Units 06:34 06:34 06:34 WBC 21.81 H (4.50-10.00) 10*3/uL MCH 32.5 H (27.0-32.0) pg MPV 13.0 H (9.5-12.2) fL Immature Gran # 0.14 H (0.00-0.04) 10*3/uL Neutrophils # 20.01 H (1.80-7.70) 10*3/uL Eosinophils # 0.00 L (0.04-0.35) 10*3/uL APTT 40.8 H (22.0-30.0) sec Chloride 109 H (98-107) mmol/L BUN 33 H (7-17) mg/dL Glucose 132 H (74-99) mg/dL POC Glucose (mg/dL) (70-110) mg/dL Assessment and Plan Assessment: Acute Non-STEMI Metabolic acidosis with low pH 7.28 on admission Acute CHF exacerbation COPD exacerbation Possible pneumonia cannot be ruled out Nicotine dependence Generalized weakness secondary to above Leukocytosis Plan: Continue with heparin drip Continue with aspirin Continue with IV Solu-Medrol Patient antibiotics ceftriaxone and Zithromax Cardiology team consult Pulmonary team consult Labs and medication were reviewed.. Continue same treatment. Continue with symptomatic treatment. Resume home medication. Monitor labs and vitals. DVT and GI prophylaxis. Further recommendations as per clinical course of the patient DVT prophylaxis: heparin GI Prophylaxis: Ppi PT/OT: Pending Prognosis is guarded
--- NOTE | 2024-07-02 09:33 | XR ---
EXAMINATION TYPE: XR chest 1V portable DATE OF EXAM: 07/02/2024 9:12 AM COMPARISON: 06/30/2024 CLINICAL INDICATION: Female, 63 years old with history of chf, TECHNIQUE: XR chest 1V portable view(s) obtained. FINDINGS: The heart size is normal. The pulmonary vasculature is prominent. There is a developing small left pleural effusion. IMPRESSION: 1. Small left pleural effusion and prominent pulmonary vascular markings. Correlate for point lower l obe. Follow-up is recommended. [facility], , 07/02/2024 9:31 AM
[2024-07-02] MEDS: HEPARIN SODIUM,PORCINE 5,000 UNIT/ML 1 ML VIAL SQ SCH (10:10)
[2024-07-02] MEDS: CLOPIDOGREL 75 MG TAB PO SCH (10:10)
[2024-07-02] MEDS: METOPROLOL TARTRATE 12.5 MG TAB PO SCH (10:10)
--- NOTE | 2024-07-02 10:17 | P.PN ---
Subjective HISTORY OF PRESENT ILLNESS: HPI: Patient is a pleasant 63-year-old female who is a patient of Dr. Nowak with a past medical history that includes COPD, fibromyalgia, GERD, hypertension, osteoarthritis, hypothyroidism, peripheral vascular disease, who was transferred from an outside facility for evaluation regarding CHF with elevated troponin, suspected PE versus CHF. Patient reports that she had shortness of breath that developed yesterday. Patient discovered that her son had recently, and has been having a significantly difficult time dealing with it. Patient was found to be significantly hypoxic upon arrival to the emergency department. She was started on supplemental oxygen. Transferring paperwork was reviewed which showed elevated troponin, CT scan showed no pulmonary embolism or evidence of congestive heart failure. EKG completed here demonstrated nonspecific T wave abnormalities with no significant evidence of ischemia. Chest x-ray was consistent with possible pneumonia. Lab work showed an elevated white blood cell count. The patient was subsequently admitted for further treatment of possible pneumonia, and cardiology was consulted for the elevated troponins and possible CHF. Office records are reviewed from 03/21/2024 which shows an EKG with similar T wave abnormalities when compared to current EKGs. Patient had a dobutamine stress echo that showed an abnormal stress test by EKG criteria but a negative dobutamine stress echo. This morning upon evaluation the patient reports that she is breathing better today. She is denying any chest pain or heart palpitations. REVIEW OF LABS, ECG & MEDICAL DATA: LABS: White count 22.9, hemoglobin 16.1, platelets 219, sodium 136, potassium 5.1, chloride 108, BUN 33, creatinine 0.68, magnesium 1.9, troponin x 3-2.14, 1.44, 1.16 EKG: Sinus mechanism with nonspecific T wave abnormalities. IMAGING: Chest x-ray dated 06/30/2024 demonstrates bilateral lower lobe airspace opacities concerning for pneumonia, atelectasis could also be considered. CT of the brain without contrast dated 06/30/2024 demonstrates no acute intracranial process, nonspecific white matter changes, likely secondary to chronic small vessel ischemic disease. 07/02/2024 Patient examined this morning at bedside. Patient currently denies chest pain or pressure. She reports improvement in her shortness of breath. 2D echo remains pending. She is maintaining sinus mechanism with a heart rate in the 90s. She is currently on IV heparin. PHYSICAL EXAM: VITAL SIGNS: Reviewed. GENERAL: Well-developed in no acute distress. NECK: Supple. No JVD or thyromegaly LUNGS: Respirations even and unlabored. Lungs essentially clear to auscultation bilaterally. HEART: Regular rate and rhythm. S1 and S2 heard. EXTREMITIES: Normal range of motion. No clubbing or cyanosis. Peripheral pulses intact. No lower extremity edema ASSESSMENT: Acute hypoxic respiratory failure Bilateral pneumonia Acute heart failure, type unknown, echo pending History of hypertension History of hyperlipidemia History of COPD Elevated troponins, type II MD secondary to oxygen supply and demand mismatch Peripheral vascular disease History of fibromyalgia History of GERD PLAN: Discontinue IV heparin Hold home dose of Coreg. Begin metoprolol 12.5 mg twice daily Continue to hold amlodipine secondary to soft blood pressures Continue with aspirin and Plavix Discontinue IV Lasix. Begin oral Lasix 20 mg daily Decrease aspirin to 81 mg daily 2D echo ordered. Await results No plans for invasive cardiac procedures at this time Further recommendations pending patient course Nurse practitioner note has been reviewed by physician. Signing provider agrees with the documented findings, assessment, and plan of care documented by [employer] as a scribe. Objective - Vital Signs Vital signs: Vital Signs Temp 97.8 F 07/02/24 08:20 Pulse 89 07/02/24 08:20 Resp 16 07/02/24 08:20 BP 111/70 07/02/24 08:20 Pulse Ox 98 07/02/24 08:20 FiO2 75 06/30/24 19:10 Intake & Output 07/01/24 07/02/24 07/02/24 18:59 06:59 18:59 Intake Total 360 423.529 Output Total 300 Balance 360 -300 423.529 Weight 61.7 kg 61.5 kg Intake: Intake, IV Titration 201.529 Amount Heparin Sod,Pork in 0.45% 201.529 NaCl 25,000 unit In 0.45 % NaCl 1 250ml.bag @ 12 UNITS/KG/HR 7.076 mls/hr IV .Q24H [facility] Rx#: [id number] Oral 360 222 Output: Urine 300 Other: # Voids 1 1 - Labs CBC & Chem 7: 07/02/24 06:34 07/02/24 06:34 Labs: Abnormal Lab Results - Last 24 Hours (Table) 07/01/24 07/01/24 07/02/24 Range/Units 16:26 19:27 06:05 WBC (4.50-10.00) 10*3/uL MCH (27.0-32.0) pg MPV (9.5-12.2) fL Immature Gran # (0.00-0.04) 10*3/uL Neutrophils # (1.80-7.70) 10*3/uL Eosinophils # (0.04-0.35) 10*3/uL APTT (22.0-30.0) sec Chloride (98-107) mmol/L BUN (7-17) mg/dL Glucose (74-99) mg/dL POC Glucose (mg/dL) 211 H 183 H 122 H (70-110) mg/dL 07/02/24 07/02/24 07/02/24 Range/Units 06:34 06:34 06:34 WBC 21.81 H (4.50-10.00) 10*3/uL MCH 32.5 H (27.0-32.0) pg MPV 13.0 H (9.5-12.2) fL Immature Gran # 0.14 H (0.00-0.04) 10*3/uL Neutrophils # 20.01 H (1.80-7.70) 10*3/uL Eosinophils # 0.00 L (0.04-0.35) 10*3/uL APTT 40.8 H (22.0-30.0) sec Chloride 109 H (98-107) mmol/L BUN 33 H (7-17) mg/dL Glucose 132 H (74-99) mg/dL POC Glucose (mg/dL) (70-110) mg/dL
[2024-07-02 11:19] LABS: Glucose,Whole Blood 122 mg/dL (70-110)
[2024-07-02] MEDS: methIMAzole 5 MG TAB PO SCH (11:34)
--- NOTE | 2024-07-02 11:37 | P.PN ---
Subjective Progress Note Date: 07/02/24 Principal diagnosis: Acute hypoxic respiratory failure with acute non-ST elevation myocardial infarction and acute congestive heart failure, unknown ejection fraction. This is a 62-year-old female with known history of COPD, not O2 dependent and not prednisone dependent, tobacco dependence syndrome, history of fibromyalgia, hypertension, hypothyroidism, patient was seen yesterday at [facility] with an acute episode of chest pain. Patient had a CT of the chest that showed mostly congestive heart failure, patient was transferred to [facility], apparently she recently discovered that her son had recently. And she is having difficulty coping with the situation. In the emergency room patient was noted to be hypoxic upon arrival, she was placed on supplemental oxygen, CT of the chest done at [place] showed no evidence of pulmonary embolism but did show evidence of interstitial edema. EKG showed nonspecific T wave abnormalities, chest x-ray in our institution showed evidence of interstitial edema, doubt underlying pneumonia and it is felt to be less likely considering the clinical history and considering the chest x-ray findin gs. At any rate patient was found to have elevated troponin levels significantly elevated BNP level, and so far she has been seen by cardiology on consultation, placed on heparin and I recommended diuretics. Patient is now on 7 L high flow nasal cannula O2 saturation is 98%. Admitting physician placed the patient empirically on antibiotics, again index of suspicion for pneumonia is rather low but she is on ceftriaxone and Zithromax, procalcitonin level is pending if normal will discontinue antibiotics in the next 24 hours. Patient does have intermittent episodes of cough with blood-tinged sputum, presently on heparin as recommended by cardiology for her elevated troponin. Seen today on 07/02/2024, patient is feeling better breathing easier but continues to have some shortness of breath. No fever no chills no hemoptysis. Chest x-ray showed definite improvement in her overall pulmonary vasculature, but she does have now a small left-sided pleural effusion. Patient remains on diuretics, steadily improving, being followed by cardiology, echocardiogram is pending. Patient is now off heparin. WBC count is 21.8 hemoglobin 15.4 electrolytes are normal renal profile is normal Objective - Vital Signs Vital signs: Vital Signs Temp 97.8 F 07/02/24 08:20 Pulse 89 07/02/24 08:20 Resp 16 05/26/25 08:20 BP 111/70 07/02/24 08:20 Pulse Ox 98 07/02/24 08:20 FiO2 75 06/30/24 19:10 Intake & Output 07/01/24 07/02/24 07/02/24 18:59 06:59 18:59 Intake Total 360 423.529 Output Total 300 Balance 360 -300 423.529 Weight 61.7 kg 61.5 kg Intake: Intake, IV Titration 201.529 Amount Heparin Sod,Pork in 0.45% 201.529 NaCl 25,000 unit In 0.45 % NaCl 1 250ml.bag @ 12 UNITS/KG/HR 7.076 mls/hr IV .Q24H MAURICIO Rx#: [id number] Oral 360 222 Output: Urine 300 Other: # Voids 1 1 - Exam General: 63-year-old female in no distress remains anxious and tearful Skin: Skin is warm and dry and no rashes or lesions are noted. Eye: Pupils are equal, round and reactive to light, extra-ocular movements are intact; there is normal conjunctiva bilaterally. Ears, nose, mouth and throat: There are moist mucous membranes and no oral lesions. Neck: The neck is supple, there is no tenderness or JVD. Cardiovascular: There is a regular rate and rhythm. No murmur, rub or gallop is appreciated. Respiratory: Diminished breath sounds at the left base, no crackles rhonchi or wheezes Gastrointestinal: Soft, non-distended, non-tender abdomen without masses or organomegaly noted. There is no rebound or guarding present. Bowel sounds are unremarkable. Back: There is no tenderness to palpation in the midline. There is no obvious deformity. Musculoskeletal: Normal ROM, no tenderness, There is no pedal edema. There is no calf tenderness or swelling. No cords were appreciated. Neurological: CN II-XII intact, Cranial nerves III through XII are intact. There are no obvious motor or sensory deficits. Coordination appears grossly intact. Speech is normal. Psychiatric: Anxious, cooperative, appropriate mood & affect, normal judgment. - Labs CBC & Chem 7: 07/02/24 06:34 07/02/24 06:34 Labs: Abnormal Lab Results - Last 24 Hours (Table) 07/01/24 07/01/24 07/02/24 Range/Units 16:26 19:27 06:05 WBC (4.50-10.00) 10*3/uL MCH (27.0-32.0) pg MPV (9.5-12.2) fL Immature Gran # (0.00-0.04) 10*3/uL Neutrophils # (1.80-7.70) 10*3/uL Eosinophils # (0.04-0.35) 10*3/uL APTT (22.0-30.0) sec Chloride (98-107) mmol/L BUN (7-17) mg/dL Glucose (74-99) mg/dL POC Glucose (mg/dL) 211 H 183 H 122 H (70-110) mg/dL 07/02/24 07/02/24 07/02/24 Range/Units 06:34 06:34 06:34 WBC 21.81 H (4.50-10.00) 10*3/uL MCH 32.5 H (27.0-32.0) pg MPV 13.0 H (9.5-12.2) fL Immature Gran # 0.14 H (0.00-0.04) 10*3/uL Neutrophils # 20.01 H (1.80-7.70) 10*3/uL Eosinophils # 0.00 L (0.04-0.35) 10*3/uL APTT 40.8 H (22.0-30.0) sec Chloride 109 H (98-107) mmol/L BUN 33 H (7-17) mg/dL Glucose 132 H (74-99) mg/dL POC Glucose (mg/dL) (70-110) mg/dL 07/02/24 Range/Units 11:16 WBC (4.50-10.00) 10*3/uL MCH (27.0-32.0) pg MPV (9.5-12.2) fL Immature Gran # (0.00-0.04) 10*3/uL Neutrophils # (1.80-7.70) 10*3/uL Eosinophils # (0.04-0.35) 10*3/uL APTT (22.0-30.0) sec Chloride (98-107) mmol/L BUN (7-17) mg/dL Glucose (74-99) mg/dL POC Glucose (mg/dL) 122 H (70-110) mg/dL Assessment and Plan Assessment: Impression: Acute hypoxic respiratory failure Acute non-ST elevation myocardial infarction Acute congestive heart failure, ejection fraction is unknown Possible pneumonia however my index of suspicion for pneumonia is extremely low procalcitonin level is normal, and her BNP level was quite elevated chest x-ray is improving pointing to congestive heart failure. History of underlying COPD Tobacco dependence syndrome Recommendation: Continue heparin for now Continue bronchodilators including Solu-Medrol and updrafts Discontinue Rocephin Continue diuretics, on Lasix 20 mg daily Change methylprednisolone to Medrol Dosepak Continue GI prophylaxis/PPI Will continue to follow. Time with Patient: Less than 30
[2024-07-02] MEDS: LORazepam 0.5 MG TAB PO PRN (11:56)
--- NOTE | 2024-07-02 15:28 | CA ---
Transthoracic Echo Report Name: Aundrea Lubin Age: 63 Gender: F : 1960 Exam Date: 07/02/2024 12:04 Exam Location: [facility] Ht (in): 64 Wt (lb): 136 Ordering Physician: Kaden Faria Attending/Referring Phys: Nonfarm Animal Caretaker Rizwana Burkett RDCS Procedure CPT: Indications: elevated troponin Cardiac Hx: Technical Quality: Contrast 1: Total Dose (mL): Contrast 2: Total Dose (mL): MEASUREMENTS (Male / Female) Normal Values 2D ECHO LV Diastolic Diameter PLAX 4.4 cm 4.2 - 5.9 / 3.9 - 5.3 cm LV Systolic Diameter PLAX 2.6 cm IVS Diastolic Thickness 0.8 cm 0.6 - 1.0 / 0.6 - 0.9 cm LVPW Diastolic Thickness 1.0 cm 0.6 - 1.0 / 0.6 - 0.9 cm LV Relative Wall Thickness 0.4 RV Internal Dim ED PLAX 1.8 cm LA Systolic Diameter LX 3.9 cm 3.0 - 4.0 / 2.7 - 3.8 cm LV Diastolic Volume MOD BP 59.8 cm??? 67 - 155 / 56 - 104 cm??? LV Systolic Volume MOD BP 36.4 cm??? 22 - 58 / 19 - 49 cm??? LV Ejection Fraction MOD BP 39.2 % >= 55 % LV Diastolic Volume MOD 4C 57.6 cm??? LV Systolic Volume MOD 4C 32.0 cm??? LV Ejection Fraction MOD 4C 44.4 % LV Diastolic Length 4C 7.4 cm LV Systolic Length 4C 6.4 cm LV Diastolic Volume MOD 2C 61.4 cm??? LV Systolic Volume MOD 2C 39.6 cm??? LV Ejection Fraction MOD 2C 35.5 % LV Diastolic Length 2C 7.3 cm LV Systolic Length 2C 6.7 cm LA Volume 80.5 cm??? 18 - 58 / 22 - 52 cm??? LA Volume Index 48.0 cm???/m??? 16 - 28 cm???/m??? M-MODE Aortic Root Diameter MM 2.9 cm LA Systolic Diameter MM 3.4 cm LA Ao Ratio MM 1.2 AV Cusp Separation MM 1.5 cm DOPPLER AV Peak Velocity 158.4 cm/s AV Peak Gradient 10.0 mmHg AV Mean Velocity 119.1 cm/s AV Mean Gradient 6.3 mmHg AV Velocity Time Integral 26.8 cm AI Peak Velocity 360.9 cm/s AI Peak Gradient 52.1 mmHg AI Pressure Half Time 657.5 ms LVOT Peak Velocity 114.2 cm/s LVOT Peak Gradient 5.2 mmHg LVOT Velocity Time Integral 22.8 cm MV Area PHT 2.8 cm??? Mitral E Point Velocity 80.4 cm/s Mitral A Point Velocity 59.4 cm/s Mitral E to A Ratio 1.4 MV Deceleration Time 267.9 ms TR Peak Velocity 314.8 cm/s TR Peak Gradient 39.6 mmHg FINDINGS Left Ventricle Left ventricular ejection fraction is estimated at 30-35%. Moderately decreased left ventricular ejection fraction. Left ventricular cavity size normal. Left ventricular wall thickness normal. Moderately reduced global left ventricular systolic function. Right Ventricle Normal right ventricular size and function. Mild pulmonary hypertension. Right Atrium Mild right atrial dilatation. Left Atrium Severely increased left atrial volume. Mitral Valve Structurally normal mitral valve. No mitral stenosis. [id number]-[id number] mitral regurgitation. Aortic Valve Trileaflet aortic valve. Zwcw-yc-[id number] aortic regurgitation. No aortic stenosis. Tricuspid Valve Structurally normal tricuspid valve. [id number] tricuspid regurgitation. No tricuspid stenosis. Pulmonic Valve No pulmonic stenosis. Trace pulmonic regurgitation. No pulmonic stenosis. Pericardium No pericardial effusion. Left pleural effusion. Aorta Normal size aortic root and proximal ascending aorta. CONCLUSIONS Reason: Abnormal troponins Reduced LV systolic function with anterior and septal and lateral hypokinesis Left atrial enlargement The basal segment contracts reasonably well with the mid and distal LV is definitely hypokinetic Consider Takotsubo syndrome Previewed by: Dr. River Hernández MD (Electronically Signed) Final Date: 02 Jul 2024 15:27
[2024-07-02] MEDS: methylPREDNISolone 4 MG TAB TAPER PO SCH (16:05)
[2024-07-02 16:13] LABS: Glucose,Whole Blood 154 mg/dL (70-110)
[2024-07-02 20:56] LABS: Glucose,Whole Blood 135 mg/dL (70-110)
[2024-07-02] MEDS: SYMBICORT 160-4.5 MCG INHALER INHALATION SCH (21:00)
[2024-07-03 06:17] LABS: Glucose,Whole Blood 124 mg/dL (70-110)
[2024-07-03 06:58] LABS: Basophils # (A) 0.02 10*3/uL (0.00-0.10); Basophils % (A) 0.1 %; HCT 38.2 % (37.2-46.3); HGB 13.3 g/dL (12.0-15.0); Lymphocytes # (A) 1.44 10*3/uL (0.90-5.00); Lymphocytes % (A) 8.6 %; MCH 32.2 pg (27.0-32.0); MCHC 34.8 g/dL (32.0-37.0); MCV 92.5 fL (80.0-97.0); Mean Platelet Volume 12.6 fL (9.5-12.2); Monocytes % (A) 4.2 %; Neutrophils # (A) 14.37 10*3/uL (1.80-7.70); Neutrophils % (A) 86.3 %; Platelet Count 142 10*3/uL (140-440); RBC 4.13 10*6/uL (4.10-5.20); RDW 12.3 % (11.5-14.5); WBC 16.66 10*3/uL (4.50-10.00)
[2024-07-03 07:22] LABS: African American GFR (CKD) >90 (>60 ml/min/1.73 sqM); Anion Gap 7 mmol/L; Blood Urea Nitrogen 35 mg/dL (7-17); Calcium 9.4 mg/dL (8.4-10.2); Carbon Dioxide 25 mmol/L (22-30); Chloride 109 mmol/L (98-107); Glucose 118 mg/dL (74-99); Non-African American GFR(CKD) >90 (>60 ml/min/1.73 sqM); Potassium 3.5 mmol/L (3.5-5.1); Sodium 141 mmol/L (137-145)
[2024-07-03] MEDS: FUROSEMIDE 20 MG TAB PO SCH (07:42)
[2024-07-03] MEDS: ASPIRIN 81 MG PO SCH (07:42)
[2024-07-03] MEDS: GABAPENTIN 300 MG CAP PO PRN (07:49)
--- NOTE | 2024-07-03 09:02 | P.PN ---
Subjective This is a pleasant 63 years old female with past medical history of multiple medical problems Presents because of chest pain of 1 day duration which she describes as really bad about 8/10 in the middle of her chest radiating to the back nonspecific in character with no specific risks precipitating or relieving factors associated with some dyspnea and she has been having coughing for the last 2 days with some of blood small amount every day. She denies GI specific symptoms she has some headache but no dizziness weakness or numbness There is suspicion of palpitation on admission as well. Patient feels generally weak but no specific lateralization She smokes about 3 to 4 cigarettes/day and she was counseled to quit and she agrees and she wants a nicotine patch. No alcohol or illicit drugs. Also patient vomited 3 times yesterday but there was no blood in it. She is requiring more oxygen since yesterday she was on 4 L went up to 8 L/m, patient is not on oxygen at home and does not use CPAP/BiPAP at home Blood pressure is borderline 96/65. Patient sitting up in bed with no dizziness. WBC is elevated 22.9. Troponin elevated 2.1, 1.4 and 2.1. Venous pH is low at 7.28 and CO2 is within the reference range at 42. proBNP [place] 756[address]. Salicylate and acetaminophen are negative less than 10 and 100. EKG showing sinus rhythm at [address]-T changes Chest x-ray showing bilateral lower infiltrates suspicious for CHF versus pneumonia Patient currently on heparin drip, ceftriaxone Zithromax Solu-Medrol 40 mg and aspirin 81 mg 07/02 Patient today complains from headache Her breathing is better, currently on room air Still on heparin drip but cardiology planning to discontinue it and placed on subcutaneous heparin Also patient is on aspirin and Plavix was added today. Patient had few beats of SVT. No chest pain Used BiPAP machine last night Check procalcitonin is low less than 0.02 07/03 Patient awake alert mildly tachypneic no significant breathing difficulty or chest pain She is concerned about comfortable blood today. She is saturating 98% on room air. Hemodynamically stable. WBC is 16,000, hemoglobin stable. Creatinine 0.7. Troponin was elevated on admission Yesterday aspirin and Plavix was added. By cardiology team and Coreg switched to metoprolol 12.5 mg Currently on IV Solu-Medrol, no need for antibiotic Review of systems GASTROINTESTINAL: No diarrhea, no nausea, no vomiting, no abdominal pain. Normoactive bowel sounds. NEUROLOGICAL: No headaches, no weakness, no numbness. HEMATOLOGICAL: (+) bleeding , no petechiae. GENITOURINARY: Denies any burning micturition, frequency, or urgency. MUSCULOSKELETAL/RHEUMATOLOGICAL: Denies any joint pain, swelling, or any muscle pain. Active Medications Generic Name Dose Route Start Last Admin Trade Name Nubia PRN Reason Stop Dose Admin Acetaminophen 650 mg 07/02/24 08:13 07/02/24 16:04 Acetaminophen Tab 325 Mg Tab PO 650 mg Q6HR PRN Administration Fever and/ or Mild Pain Albuterol Sulfate 2.5 mg 06/30/24 20:00 07/03/24 03:53 Albuterol Nebulized 2.5 Mg/3 Ml INHALATION Not Given RT-Q4H MAURICIO Aspirin 81 mg 07/03/24 09:00 07/03/24 07:42 Aspirin 81 Mg PO 81 mg DAILY MAURICIO Administration Atorvastatin Calcium 80 mg 06/30/24 17:30 07/03/24 07:42 Atorvastatin 80 Mg Tab PO 80 mg DAILY MAURICIO Administration Budesonide/Formoterol Fumarate 2 puff 07/02/24 20:00 07/02/24 21:00 Symbicort 160-4.5 Mcg Inhaler INHALATION Not Given RT-BID MAURICIO Clopidogrel Bisulfate 75 mg 07/02/24 09:00 07/03/24 07:42 Clopidogrel 75 Mg Tab PO 75 mg DAILY MAURICIO Administration Dextrose/Water 25 ml 07/01/24 11:46 Dextrose 50% Syringe 50 Ml IVP PER PROTOCOL PRN Hypoglycemia Protocol Dextrose/Water 50 ml 07/01/24 11:46 Dextrose 50% Syringe 50 Ml IVP PER PROTOCOL PRN Hypoglycemia Protocol Furosemide 20 mg 07/03/24 09:00 07/03/24 07:42 Furosemide 20 Mg Tab PO 20 mg DAILY MAURICIO Administration Gabapentin 300 mg 07/02/24 08:41 07/03/24 07:49 Gabapentin 300 Mg Cap PO 300 mg TID PRN Administration Pain Sodium Chloride 1,000 mls @ 25 mls/hr 06/30/24 16:30 07/02/24 15:47 Saline 0.9% IV Not Given .Q24H MAURICIO Insulin Human Lispro 0 unit 07/01/24 17:30 07/03/24 06:21 Insulin Lispro (Humalog) 100 Unit/Ml 10 Ml Vl SQ Not Given ACHS MAURICIO Protocol Lorazepam 0.5 mg 07/01/24 12:55 07/03/24 07:42 Lorazepam 0.5 Mg Tab PO 0.5 mg Q4HR PRN Administration Anxiety Methimazole 5 mg 07/02/24 09:00 07/03/24 07:43 Methimazole 5 Mg Tab PO 5 mg DAILY MAURICIO Administration Methylprednisolone 24 mg 07/02/24 12:00 07/03/24 07:42 Methylprednisolone 4 Mg Tab Taper PO 07/08/24 11:59 24 mg DAILY MAURICIO Administration Taper Metoprolol Tartrate 12.5 mg 07/02/24 09:00 07/03/24 07:42 Metoprolol Tartrate 12.5 Mg Tab PO 12.5 mg BID MAURICIO Administration Morphine Sulfate 4 mg 06/30/24 17:18 Morphine Sulfate 4 Mg/Ml Syringe IV Q4HR PRN Chest Pain Nicotine 1 patch 07/01/24 10:15 07/02/24 08:24 Nicotine 14mg/24hr Patch TRANSDERM 1 patch DAILY MAURICIO Administration Pantoprazole Sodium 40 mg 07/01/24 10:15 07/03/24 07:52 Pantoprazole 40 Mg/10 Ml Vial IVP 40 mg BID MAURICIO Administration Objective - Vital Signs Vital signs: Vital Signs Temp 97.8 F 07/03/24 08:30 Pulse 78 07/03/24 08:30 Resp 18 07/03/24 08:30 BP 110/52 07/03/24 08:30 Pulse Ox 98 07/03/24 08:30 FiO2 75 06/30/24 19:10 Intake & Output 07/02/24 07/03/24 07/03/24 18:59 06:59 18:59 Intake Total 773.529 240 Output Total 0 Balance 773.529 0 240 Weight 59.3 kg Intake: Intake, IV Titration 201.529 Amount Heparin Sod,Pork in 0.45% 201.529 NaCl 25,000 unit In 0.45 % NaCl 1 250ml.bag @ 12 UNITS/KG/HR 7.076 mls/hr IV .Q24H MAURICIO Rx#: [id number] Oral 572 240 Output: Urine 0 Other: # Voids 2 - Exam -GENERAL: The patient is alert and oriented x3, not in any acute distress. Well developed, well nourished. Lethargic and tired HEENT: Pupils are round and equally reacting to light. EOMI. No scleral icterus. No conjunctival pallor. Normocephalic, atraumatic. No pharyngeal erythema. No thyromegaly. CARDIOVASCULAR: S1 and S2 present. No murmurs, rubs, or gallops. PULMONARY: Chest is clear to auscultation, no wheezing , no crackles. ABDOMEN: Soft, nontender, nondistended, normoactive bowel sounds. No palpable organomegaly. MUSCULOSKELETAL: No joint swelling or deformity. EXTREMITIES: No cyanosis, clubbing, or pedal edema. NEUROLOGICAL: Gross neurological examination did not reveal any focal deficits. SKIN: No rashes. no petechiae. - Labs CBC & Chem 7: 07/03/24 06:27 07/03/24 06:27 Labs: Abnormal Lab Results - Last 24 Hours (Table) 07/02/24 07/02/24 07/02/24 Range/Units 11:16 16:09 20:54 WBC (4.50-10.00) 10*3/uL MCH (27.0-32.0) pg MPV (9.5-12.2) fL Immature Gran # (0.00-0.04) 10*3/uL Neutrophils # (1.80-7.70) 10*3/uL Eosinophils # (0.04-0.35) 10*3/uL Chloride (98-107) mmol/L BUN (7-17) mg/dL Glucose (74-99) mg/dL POC Glucose (mg/dL) 122 H 154 H 135 H (70-110) mg/dL 07/03/24 07/03/24 07/03/24 Range/Units 06:16 06:27 06:27 WBC 16.66 H (4.50-10.00) 10*3/uL MCH 32.2 H (27.0-32.0) pg MPV 12.6 H (9.5-12.2) fL Immature Gran # 0.13 H (0.00-0.04) 10*3/uL Neutrophils # 14.37 H (1.80-7.70) 10*3/uL Eosinophils # 0.00 L (0.04-0.35) 10*3/uL Chloride 109 H (98-107) mmol/L BUN 35 H (7-17) mg/dL Glucose 118 H (74-99) mg/dL POC Glucose (mg/dL) 124 H (70-110) mg/dL Assessment and Plan Assessment: Acute Non-STEMI Acute CHF exacerbation, mild and improved COPD exacerbation, mild and improved Hemoptysis Metabolic acidosis with low pH 7.28 on admission. Improved Possible pneumonia cannot be ruled out Nicotine dependence Generalized weakness secondary to above Leukocytosis Plan: H Lasix added by rig builder helper on 07/02 eparin drip discontinued yesterday Continue with aspirin. On steroids Medrol Dosepak by pulmonary Patient antibiotics ceftriaxone and Zithromax antibiotics discontinued Cardiology team consult Pulmonary team consult Labs and medication were reviewed.. Continue same treatment. Continue with symptomatic treatment. Resume home medication. Monitor labs and vitals. DVT and GI prophylaxis. Further recommendations as per clinical course of the patient DVT prophylaxis: Discontinue heparin in view of hemoptysis and patient already on dual antiplatelet therapy with aspirin and Plavix GI Prophylaxis: Ppi PT/OT: Pending Prognosis is guarded
--- NOTE | 2024-07-03 11:35 | P.PN ---
Subjective HISTORY OF PRESENT ILLNESS: HPI: Patient is a pleasant 63-year-old female who is a patient of Dr. Nowak with a past medical history that includes COPD, fibromyalgia, GERD, hypertension, osteoarthritis, hypothyroidism, peripheral vascular disease, who was transferred from an outside facility for evaluation regarding CHF with elevated troponin, suspected PE versus CHF. Patient reports that she had shortness of breath that developed yesterday. Patient discovered that her son had recently, and has been having a significantly difficult time dealing with it. Patient was found to be significantly hypoxic upon arrival to the emergency department. She was started on supplemental oxygen. Transferring paperwork was reviewed which showed elevated troponin, CT scan showed no pulmonary embolism or evidence of congestive heart failure. EKG completed here demonstrated nonspecific T wave abnormalities with no significant evidence of ischemia. Chest x-ray was consistent with possible pneumonia. Lab work showed an elevated white blood cell count. The patient was subsequently admitted for further treatment of possible pneumonia, and cardiology was consulted for the elevated troponins and possible CHF. Office records are reviewed from 03/21/2024 which shows an EKG with similar T wave abnormalities when compared to current EKGs. Patient had a dobutamine stress echo that showed an abnormal stress test by EKG criteria but a negative dobutamine stress echo. This morning upon evaluation the patient reports that she is breathing better today. She is denying any chest pain or heart palpitations. REVIEW OF LABS, ECG & MEDICAL DATA: LABS: White count 22.9, hemoglobin 16.1, platelets 219, sodium 136, potassium 5.1, chloride 108, BUN 33, creatinine 0.68, magnesium 1.9, troponin x 3-2.14, 1.44, 1.16 EKG: Sinus mechanism with nonspecific T wave abnormalities. IMAGING: Chest x-ray dated 06/30/2024 demonstrates bilateral lower lobe airspace opacities concerning for pneumonia, atelectasis could also be considered. CT of the brain without contrast dated 06/30/2024 demonstrates no acute intracranial process, nonspecific white matter changes, likely secondary to chronic small vessel ischemic disease. 07/02/2024 Patient examined this morning at bedside. Patient currently denies chest pain or pressure. She reports improvement in her shortness of breath. 2D echo remains pending. She is maintaining sinus mechanism with a heart rate in the 90s. She is currently on IV heparin. 07/03/2024 Patient examined this morning at bedside. Patient currently denies chest pain or pressure. She denies shortness of breath. Echocardiogram completed revealing ejection fraction 30 to 35% with anterior and septal and lateral h ypokinesis, consider Takotsubo. Systolic blood pressure in the low 100s. PHYSICAL EXAM: VITAL SIGNS: Reviewed. GENERAL: Well-developed in no acute distress. NECK: Supple. No JVD or thyromegaly LUNGS: Respirations even and unlabored. Lungs essentially clear to auscultation bilaterally. HEART: Regular rate and rhythm. S1 and S2 heard. EXTREMITIES: Normal range of motion. No clubbing or cyanosis. Peripheral pulses intact. No lower extremity edema ASSESSMENT: Acute hypoxic respiratory failure Bilateral pneumonia Acute heart failure with reduced EF Possible Takotsubo cardiomyopathy History of hypertension History of hyperlipidemia History of COPD Elevated troponins, type II NV secondary to oxygen supply and demand mismatch Peripheral vascular disease History of fibromyalgia History of GERD PLAN: Increase metoprolol to 25 mg twice a day Consider eventual addition of SANDRA/ARB Continue additional cardiac medications including aspirin, Lipitor, Plavix, Lasix No plans for invasive cardiac procedures at this time Further recommendations pending patient course Nurse practitioner note has been reviewed by physician. Signing provider agrees with the documented findings, assessment, and plan of care documented by DIRECTOR CONSUMER as a scribe. Objective - Vital Signs Vital signs: Vital Signs Temp 97.8 F 07/03/24 08:30 Pulse 78 07/03/24 08:30 Resp 18 07/03/24 08:30 BP 110/52 07/03/24 08:30 Pulse Ox 98 07/03/24 08:30 FiO2 75 06/30/24 19:10 Intake & Output 07/02/24 07/03/24 07/03/24 18:59 06:59 18:59 Intake Total 773.529 240 Output Total 0 Balance 773.529 0 240 Weight 59.3 kg Intake: Intake, IV Titration 201.529 Amount Heparin Sod,Pork in 0.45% 201.529 NaCl 25,000 unit In 0.45 % NaCl 1 250ml.bag @ 12 UNITS/KG/HR 7.076 mls/hr IV .Q24H MAURICIO Rx#: [id number] Oral 572 240 Output: Urine 0 Other: # Voids 2 - Labs CBC & Chem 7: 07/03/24 06:27 07/03/24 06:27 Labs: Abnormal Lab Results - Last 24 Hours (Table) 07/02/24 07/02/24 07/03/24 Range/Units 16:09 20:54 06:16 WBC (4.50-10.00) 10*3/uL MCH (27.0-32.0) pg MPV (9.5-12.2) fL Immature Gran # (0.00-0.04) 10*3/uL Neutrophils # (1.80-7.70) 10*3/uL Eosinophils # (0.04-0.35) 10*3/uL Chloride (98-107) mmol/L BUN (7-17) mg/dL Glucose (74-99) mg/dL POC Glucose (mg/dL) 154 H 135 H 124 H (70-110) mg/dL 07/03/24 07/03/24 Range/Units 06:27 06:27 WBC 16.66 H (4.50-10.00) 10*3/uL MCH 32.2 H (27.0-32.0) pg MPV 12.6 H (9.5-12.2) fL Immature Gran # 0.13 H (0.00-0.04) 10*3/uL Neutrophils # 14.37 H (1.80-7.70) 10*3/uL Eosinophils # 0.00 L (0.04-0.35) 10*3/uL Chloride 109 H (98-107) mmol/L BUN 35 H (7-17) mg/dL Glucose 118 H (74-99) mg/dL POC Glucose (mg/dL) (70-110) mg/dL
[2024-07-03] MEDS: METOPROLOL TARTRATE 12.5 MG TAB PO STA (11:59)
[2024-07-03 12:03] LABS: Glucose,Whole Blood 136 mg/dL (70-110)
--- NOTE | 2024-07-03 14:24 | P.PN ---
Subjective Progress Note Date: 07/03/24 This is a 62-year-old female with known history of COPD, not O2 dependent and not prednisone dependent, tobacco dependence syndrome, history of fibromyalgia, hypertension, hypothyroidism, patient was seen yesterday at [facility] with an acute episode of chest pain. Patient had a CT of the chest that showed mostly congestive heart failure, patient was transferred to [facility], apparently she recently discovered that her son had recently. And she is having difficulty coping with the situation. In the emergency room patient was noted to be hypoxic upon arrival, she was placed on supplemental oxygen, CT of the chest done at [place] showed no evidence of pulmonary embolism but did show evidence of interstitial edema. EKG showed nonspecific T wave abnormalities, chest x-ray in our institution showed evidence of interstitial edema, doubt underlying pneumonia and it is felt to be less likely considering the clinical history and considering the chest x-ray fi ndings. At any rate patient was found to have elevated troponin levels significantly elevated BNP level, and so far she has been seen by cardiology on consultation, placed on heparin and I recommended diuretics. Patient is now on 7 L high flow nasal cannula O2 saturation is 98%. Admitting physician placed the patient empirically on antibiotics, again index of suspicion for pneumonia is rather low but she is on ceftriaxone and Zithromax, procalcitonin level is pending if normal will discontinue antibiotics in the next 24 hours. Patient does have intermittent episodes of cough with blood-tinged sputum, presently on heparin as recommended by cardiology for her elevated troponin. Seen today on 07/02/2024, patient is feeling better breathing easier but continues to have some shortness of breath. No fever no chills no hemoptysis. Chest x-ray showed definite improvement in her overall pulmonary vasculature, but she does have now a small left-sided pleural effusion. Patient remains on d iuretics, steadily improving, being followed by cardiology, echocardiogram is pending. Patient is now off heparin. WBC count is 21.8 hemoglobin 15.4 electrolytes are normal renal profile is normal The patient is seen today July 03, 2024 in follow-up on the selective care unit. She is currently sitting up in bed. Awake and alert in no acute distress. Maintaining O2 saturations in the 90s on room air oxygen. She remains on Symbicort, albuterol, Medrol Dosepak. Continued on oral diuretics. NicoDerm patch in place. White count 16.6. Hemoglobin 13.3. Platelets 142. Sodium 141. Potassium 3.5. Bicarb 25. BUN 35. Creatinine 0.71. Glucose 124. Objective - Vital Signs Vital signs: Vital Signs Temp 97.8 F 07/03/24 08:30 Pulse 84 07/03/24 11:55 Resp 16 07/03/24 11:55 BP 136/79 07/03/24 11:55 Pulse Ox 97 07/03/24 11:55 FiO2 75 06/30/24 19:10 Intake & Output 07/02/24 07/03/24 07/03/24 18:59 06:59 18:59 Intake Total 773.529 240 Output Total 0 Balance 773.529 0 240 Weight 59.3 kg Intake: Intake, IV Titration 201.529 Amount Heparin Sod,Pork in 0.45% 201.529 NaCl 25,000 unit In 0.45 % NaCl 1 250ml.bag @ 12 UNITS/KG/HR 7.076 mls/hr IV .Q24H [facility] Rx#: [id number] Oral 572 240 Output: Urine 0 Other: # Voids 2 - Exam GENERAL EXAM: Alert, active, 63-year-old female, on room air oxygen, comfortable in no apparent distress. HEAD: Normocephalic. EYES: Normal reaction of pupils, equal size. NOSE: Clear with pink turbinates. THROAT: No erythema or exudates. NECK: No masses, no JVD. CHEST: No chest wall deformity. LUNGS: Equal air entry with no crackles, wheeze, rhonchi or dullness. CVS: S1 and S2 normal with no audible murmur, regular rhythm. ABDOMEN: No hepatosplenomegaly, normal bowel sounds, no guarding or rigidity. SPINE: No scoliosis or deformity SKIN: No rashes CENTRAL NERVOUS SYSTEM: No focal deficits, tone is normal in all 4 extremities. EXTREMITIES: There is no peripheral edema. No clubbing, no cyanosis. Peripheral pulses are intact. - Labs CBC & Chem 7: 07/03/24 06:27 07/03/24 06:27 Labs: Abnormal Lab Results - Last 24 Hours (Table) 07/02/24 07/02/24 07/03/24 Range/Units 16:09 20:54 06:16 WBC (4.50-10.00) 10*3/uL MCH (27.0-32.0) pg MPV (9.5-12.2) fL Immature Gran # (0.00-0.04) 10*3/uL Neutrophils # (1.80-7.70) 10*3/uL Eosinophils # (0.04-0.35) 10*3/uL Chloride (98-107) mmol/L BUN (7-17) mg/dL Glucose (74-99) mg/dL POC Glucose (mg/dL) 154 H 135 H 124 H (70-110) mg/dL 07/03/24 07/03/24 07/03/24 Range/Units 06:27 06:27 11:49 WBC 16.66 H (4.50-10.00) 10*3/uL MCH 32.2 H (27.0-32.0) pg MPV 12.6 H (9.5-12.2) fL Immature Gran # 0.13 H (0.00-0.04) 10*3/uL Neutrophils # 14.37 H (1.80-7.70) 10*3/uL Eosinophils # 0.00 L (0.04-0.35) 10*3/uL Chloride 109 H (98-107) mmol/L BUN 35 H (7-17) mg/dL Glucose 118 H (74-99) mg/dL POC Glucose (mg/dL) 136 H (70-110) mg/dL Assessment and Plan Assessment: Acute hypoxic respiratory failure secondary to an acute exacerbation of systolic congestive heart failure with an ejection fraction 30 to 35%. Possible T akotsubo syndrome Acute non-ST elevation myocardial infarction Acutely grieving the sudden of her son History of underlying COPD Tobacco dependence syndrome Plan: The patient was seen and evaluated Chest x-ray, labs and medications reviewed Stable and on room air oxygen Educated regarding smoking cessation NicoDerm patch in place Continued on oral diuretic Continue Symbicort, albuterol Complete a Medrol Dosepak Home once cleared by cardiology I have personally seen and examined the patient, performed the documentation and the assessment and plan as written. Number of minutes spent on the visit: 10 Dictation was produced using [employer] dictation software. Please excuse any gramm atical, word or spelling errors.
[2024-07-03 17:04] LABS: Glucose,Whole Blood 129 mg/dL (70-110)
[2024-07-03 20:07] LABS: Glucose,Whole Blood 146 mg/dL (70-110)
[2024-07-03] MEDS: METOPROLOL TARTRATE 25 MG TAB PO SCH (20:27)
[2024-07-04 06:00] LABS: Glucose,Whole Blood 90 mg/dL (70-110)
--- NOTE | 2024-07-04 11:11 | P.PN ---
Subjective HISTORY OF PRESENT ILLNESS: HPI: Patient is a pleasant 63-year-old female who is a patient of Dr. Nowak with a past medical history that includes COPD, fibromyalgia, GERD, hypertension, osteoarthritis, hypothyroidism, peripheral vascular disease, who was transferred from an outside facility for evaluation regarding CHF with elevated troponin, suspected PE versus CHF. Patient reports that she had shortness of breath that developed yesterday. Patient discovered that her son had recently, and has been having a significantly difficult time dealing with it. Patient was found to be significantly hypoxic upon arrival to the emergency department. She was started on supplemental oxygen. Transferring paperwork was reviewed which showed elevated troponin, CT scan showed no pulmonary embolism or evidence of congestive heart failure. EKG completed here demonstrated nonspecific T wave abnormalities with no significant evidence of ischemia. Chest x-ray was consistent with possible pneumonia. Lab work showed an elevated white blood cell count. The patient was subsequently admitted for further treatment of possible pneumonia, and cardiology was consulted for the elevated troponins and possible CHF. Office records are reviewed from 03/21/2024 which shows an EKG with similar T wave abnormalities when compared to current EKGs. Patient had a dobutamine stress echo that showed an abnormal stress test by EKG criteria but a negative dobutamine stress echo. This morning upon evaluation the patient reports that she is breathing better today. She is denying any chest pain or heart palpitations. REVIEW OF LABS, ECG & MEDICAL DATA: LABS: White count 22.9, hemoglobin 16.1, platelets 219, sodium 136, potassium 5.1, chloride 108, BUN 33, creatinine 0.68, magnesium 1.9, troponin x 3-2.14, 1.44, 1.16 EKG: Sinus mechanism with nonspecific T wave abnormalities. IMAGING: Chest x-ray dated 06/30/2024 demonstrates bilateral lower lobe airspace opacities concerning for pneumonia, atelectasis could also be considered. CT of the brain without contrast dated 06/30/2024 demonstrates no acute intracranial process, nonspecific white matter changes, likely secondary to chronic small vessel ischemic disease. 07/02/2024 Patient examined this morning at bedside. Patient currently denies chest pain or pressure. She reports improvement in her shortness of breath. 2D echo remains pending. She is maintaining sinus mechanism with a heart rate in the 90s. She is currently on IV heparin. 07/03/2024 Patient examined this morning at bedside. Patient currently denies chest pain or pressure. She denies shortness of breath. Echocardiogram completed revealing ejection fraction 30 to 35% with anterior and septal and lateral h ypokinesis, consider Takotsubo. Systolic blood pressure in the low 100s. 07/04/2024 Patient examined this morning at the bedside. Patient currently denies chest pain or pressure. She denies shortness of breath. Blood pressure 108/69. She is maintaining sinus mechanism. PHYSICAL EXAM: VITAL SIGNS: Reviewed. GENERAL: Well-developed in no acute distress. NECK: Supple. No JVD or thyromegaly LUNGS: Respirations even and unlabored. Lungs essentially clear to auscultation bilaterally. HEART: Regular rate and rhythm. S1 and S2 heard. EXTREMITIES: Normal range of motion. No clubbing or cyanosis. Peripheral pulses intact. No lower extremity edema ASSESSMENT: Acute hypoxic respiratory failure Bilateral pneumonia, ruled out with normal procalcitonin Acute heart failure with reduced EF Possible Takotsubo cardiomyopathy History of hypertension History of hyperlipidemia History of COPD Elevated troponins, type II DC secondary to oxygen supply and demand mismatch Peripheral vascular disease History of fibromyalgia History of GERD PLAN: Continue current cardiac medications including aspirin, Lipitor, Plavix, Lasix, metoprolol Add losartan 12.5 mg at night No plans for invasive cardiac procedures at this time Patient is stable for discharge home today from a cardiac standpoint Further recommendations pending patient course Nurse practitioner note has been reviewed by physician. Signing provider agrees with the documented findings, assessment, and plan of care documented by TIE PRESSER as a scribe. Objective - Vital Signs Vital signs: Vital Signs Temp 97.4 F L 07/04/24 08:00 Pulse 75 07/04/24 09:01 Resp 18 07/04/24 08:00 BP 108/69 07/04/24 08:00 Pulse Ox 98 07/04/24 08:00 FiO2 75 06/30/24 19:10 Intake & Output 07/03/24 07/04/24 07/04/24 18:59 06:59 18:59 Intake Total 640 240 Output Total 0 Balance 640 0 240 Weight 59.4 kg Intake: Oral 640 240 Output: Urine 0 Other: # Voids 1 - Labs CBC & Chem 7: 07/03/24 06:27 07/03/24 06:27 Labs: Abnormal Lab Results - Last 24 Hours (Table) 07/03/24 07/03/24 07/03/24 Range/Units 11:49 17:01 20:06 POC Glucose (mg/dL) 136 H 129 H 146 H (70-110) mg/dL
[2024-07-04 11:56] LABS: Glucose,Whole Blood 128 mg/dL (70-110)
--- NOTE | 2024-07-04 12:31 | P.PN ---
Subjective Progress Note Date: 07/04/24 Principal diagnosis: CHF, COPD. This is a 62-year-old female with known history of COPD, not O2 dependent and not prednisone dependent, tobacco dependence syndrome, history of fibromyalgia, hypertension, hypothyroidism, patient was seen yesterday at [facility] with an acute episode of chest pain. Patient had a CT of the chest that showed mostly congestive heart failure, patient was transferred to [facility], apparently she recently discovered that her son had recently. And she is having difficulty coping with the situation. In the [facility] room patient was noted to be hypoxic upon arrival, she was placed on supplemental oxygen, CT of the chest done at [place] showed no evidence of pulmonary embolism but did show evidence of interstitial edema. EKG showed nonspecific T wave abnormalities, chest x-ray in our institution showed evidence of interstitial edema, doubt underlying pneumonia and it is felt to be less likely considering the clinical history and considering the chest x-ray findings. At any rate patient was found to have elevated troponin levels significantly elevated BNP level, and so far she has been seen by cardiology on consultation, placed on heparin and I recommended diuretics. Patient is now on 7 L high flow nasal cannula O2 saturation is 98%. Admitting physician placed the patient empirically on antibiotics, again index of suspicion for pneumonia is rather low but she is on ceftriaxone and Zithromax, procalcitonin level is pending if normal will discontinue antibiotics in the next 24 hours. Patient does have intermittent episodes of cough with blood-tinged sputum, presently on heparin as recommended by cardiology for her elevated troponin. Seen today on 07/02/2024, patient is feeling better breathing easier but continues to have some shortness of breath. No fever no chills no hemoptysis. Chest x-ray showed definite improvement in her overall pulmonary vasculature, but she does have now a small left-sided pleural effusion. Patient remains on diuretics, steadily improving, being followed by cardiology, echocardiogram is pending. Patient is now off heparin. WBC count is 21.8 hemoglobin 15.4 electrolytes are normal renal profile is normal The patient is seen today July 03, 2024 in follow-up on the selective care unit. She is currently sitting up in bed. Awake and alert in no acute distress. Maintaining O2 saturations in the 90s on room air oxygen. She remains on Symbicort, albuterol, Medrol Dosepak. Continued on oral diuretics. NicoDerm patch in place. White count 16.6. Hemoglobin 13.3. Platelets 142. Sodium 141. Potassium 3.5. Bicarb 25. BUN 35. Creatinine 0.71. Glucose 124. Progress note dated July 04, 2024. 63-year-old female seen today in room 373. The patient is currently on room air. The patient is getting saline at 25 cc an hour. She denies any respiratory difficulty or distress. She is awake and alert. No new labs today. Glucose is 128. No recent chest x-ray. Objective - Vital Signs Vital signs: Vital Signs Temp 98 F 07/04/24 11:21 Pulse 71 07/04/24 11:21 Resp 18 07/04/24 11:21 BP 101/65 07/04/24 11:21 Pulse Ox 97 07/04/24 11:21 FiO2 75 06/30/24 19:10 Intake & Output 07/03/24 07/04/24 07/04/24 18:59 06:59 18:59 Intake Total 640 240 Output Total 0 Balance 640 0 240 Weight 59.4 kg Intake: Oral 640 240 Output: Urine 0 Other: # Voids 1 - Exam No acute distress, oriented 3. HEENT examination is grossly unremarkable. Mucous membranes are moist. No oral lesions. Neck supple. Full range of motion. No adenopathy thyromegaly or neck vein distention. Cardiovascular examination reveals regular rhythm rate. S1-S2 normal. No S3 or S4. No discernible murmur noted. Lungs reveal clear breath sounds. Breath sounds are equal bilaterally. No adventitious lung sounds including wheezes rhonchi or crackles. Abdomen soft bowel sounds are heard. No masses or tenderness. Extremities are intact. No cyanosis clubbing or edema. Skin is without rash or lesion. Neurologic examination is brief but nonfocal. - Labs CBC & Chem 7: 07/03/24 06:27 07/03/24 06:27 Labs: Abnormal Lab Results - Last 24 Hours (Table) 07/03/24 07/03/24 07/04/24 Range/Units 17:01 20:06 11:55 POC Glucose (mg/dL) 129 H 146 H 128 H (70-110) mg/dL Assessment and Plan Assessment: Acute hypoxemic respiratory failure, secondary to systolic congestive heart failure, with ejection fraction of 30 to 35%. Possible Takotsubo syndrome. Acute non-ST segment elevation myocardial infarction. History of underlying COPD. Tobacco dependence syndrome. Plan: Plan dated July 04, 2024. The patient was seen today in room 373, interviewed and examined. Chest x-ray, labs, and all medications have been reviewed. Currently, the patient is on room air. She is receiving saline at 25 cc an hour. A nicotine patch is in place. She continues on appropriate medications including albuterol, and Symbicort. We will continue to follow the patient, and make recommendations along the way. The patient's overall prognosis remains guarded. Dictation was produced using [email or web address] software. Please excuse any grammatical, word or spelling errors. Time with Patient: Less than 30
--- NOTE | 2024-07-04 16:09 | P.PN ---
Progress Note - Text Progress Note Date: 07/04/24 This is a pleasant 63 years old female with past medical history of multiple medical problems Presents because of chest pain of 1 day duration which she describes as really bad about 8/10 in the middle of her chest radiating to the back nonspecific in character with no specific risks precipitating or relieving factors associated with some dyspnea and she has been having coughing for the last 2 days with some of blood small amount every day. She denies GI specific symptoms she has some headache but no dizziness weakness or numbness There is suspicion of palpitation on admission as well. Patient feels generally weak but no specific lateralization She smokes about 3 to 4 cigarettes/day and she was counseled to quit and she agrees and she wants a nicotine patch. No alcohol or illicit drugs. Also patient vomited 3 times yesterday but there was no blood in it. She is requiring more oxygen since yesterday she was on 4 L went up to 8 L/m, patient is not on oxygen at home and does not use CPAP/BiPAP at home Blood pressure is borderline 96/65. Patient sitting up in bed with no dizzin ess. WBC is elevated 22.9. Troponin elevated 2.1, 1.4 and 2.1. Venous pH is low at 7.28 and CO2 is within the reference range at 42. [place] [id number]. Salicylate and acetaminophen are negative less than 10 and 100. EKG showing sinus rhythm at [address]-T changes Chest x-ray showing bilateral lower infiltrates suspicious for CHF versus pneumonia Patient currently on heparin drip, ceftriaxone Zithromax Solu-Medrol 40 mg and aspirin 81 mg 07/02 Patient today complains from headache Her breathing is better, currently on room air Still on heparin drip but cardiology planning to discontinue it and placed on subcutaneous heparin Also patient is on aspirin and Plavix was added today. Patient had few beats of SVT. No chest pain Used BiPAP machine last night Check procalcitonin is low less than 0.02 07/03 Patient awake alert mildly tachypneic no significant breathing difficulty or chest pain She is concerned about comfortable blood today. She is saturating 98% on room air. Hemodynamically stable. WBC is 16,000, hemoglobin stable. Creatinine 0.7. Troponin was elevated on admission Yesterday aspirin and Plavix was added. By cardiology team and Coreg switched t o metoprolol 12.5 mg Currently on IV Solu-Medrol, no need for antibiotic July 04: Some improvement in shortness of breath. Slight cough. Some improvement in appetite. Has been up to the bathroom. Have the patient ambulate hopefully in the hallway. Sit up in the chair. Patient being switched over to oral steroids. Active Medications Acetaminophen (Acetaminophen Tab 325 Mg Tab) 650 mg PO Q6HR PRN PRN Reason: Fever and/ or Mild Pain Last Admin: 07/04/24 08:29 Dose: 650 mg Albuterol Sulfate (Albuterol Nebulized 2.5 Mg/3 Ml) 2.5 mg INHALATION RT-Q4H [facility] Last Admin: 07/04/24 12:06 Dose: Not Given Aspirin (Aspirin 81 Mg) 81 mg PO DAILY [facility] Last Admin: 07/04/24 08:30 Dose: 81 mg Atorvastatin Calcium (Atorvastatin 80 Mg Tab) 80 mg PO DAILY [facility] Last Admin: 07/04/24 08:30 Dose: 80 mg Budesonide/Formoterol Fumarate (Symbicort 160-4.5 Mcg Inhaler) 2 puff INHALATION RT-BID [facility] Last Admin: 07/04/24 08:51 Dose: 2 puff Clopidogrel Bisulfate (Clopidogrel 75 Mg Tab) 75 mg PO DAILY [facility] Last Admin: 07/04/24 08:30 Dose: 75 mg Dextrose/Water (Dextrose 50% Syringe 50 Ml) 25 ml IVP PER PROTOCOL PRN; Protocol PRN Reason: Hypoglycemia Dextrose/Water (Dextrose 50% Syringe 50 Ml) 50 ml IVP PER PROTOCOL PRN; Protocol PRN Reason: Hypoglycemia Furosemide (Furosemide 20 Mg Tab) 20 mg PO DAILY [facility] Last Admin: 07/04/24 08:30 Dose: 20 mg Gabapentin (Gabapentin 300 Mg Cap) 300 mg PO TID PRN PRN Reason: Pain Last Admin: 07/03/24 15:25 Dose: 300 mg Sodium Chloride (Saline 0.9%) 1,000 mls @ 25 mls/hr IV .Q24H [facility] Last Admin: 07/04/24 10:24 Dose: Not Given Insulin Human Lispro (Insulin Lispro (Humalog) 100 Unit/Ml 10 Ml Vl) 0 unit SQ ACHS [facility]; Protocol Last Admin: 07/04/24 12:02 Dose: Not Given Lorazepam (Lorazepam 0.5 Mg Tab) 0.5 mg PO Q4HR PRN PRN Reason: Anxiety Last Admin: 07/04/24 12:35 Dose: 0.5 mg Losartan Potassium (Losartan 25 Mg Tab) 12.5 mg PO [facility] Methimazole (Methimazole 5 Mg Tab) 5 mg PO DAILY [facility] Last Admin: 07/04/24 08:30 Dose: 5 mg Methylprednisolone (Methylprednisolone 4 Mg Tab Taper) 16 mg PO DAILY [facility]; Taper Stop: 07/08/24 11:59 Last Admin: 07/04/24 08:30 Dose: 20 mg Metoprolol Tartrate (Metoprolol Tartrate 25 Mg Tab) 25 mg PO BID [facility] Last Admin: 07/04/24 08:30 Dose: 25 mg Morphine Sulfate (Morphine Sulfate 4 Mg/Ml Syringe) 4 mg IV Q4HR PRN PRN Reason: Chest Pain Nicotine (Nicotine 14mg/24hr Patch) 1 patch TRANSDERM DAILY [facility] Last Admin: 07/04/24 08:29 Dose: 1 patch Pantoprazole Sodium (Pantoprazole 40 Mg/10 Ml Vial) 40 mg IVP BID [facility] Last Admin: 07/04/24 11:24 Dose: 40 mg On examination: VITAL SIGNS: [98, 71, 18, 101/65, 97% room air] GENERAL APPEARANCE: Laying in bed, not in distress. HEENT: Normal external appearance of nose and ear. Oral cavity normal EYES: Pupils equal. Conjunctiva normal. NECK: JVD not raised. Mass not palpable. RESPIRATORY: Respiratory effort normal. Diminished breath sounds CARDIOVASCULAR: First and second sounds normal. No edema. ABDOMEN: Soft. Liver and spleen not palpable. No tenderness. No mass palpable. PSYCHIATRY: Alert and oriented x3. Mood and affect normal. INVESTIGATIONS, reviewed in the clinical context: July 03: White count 16.6 hemoglobin 13.3 platelets 142 sodium 141 potassium 3.5 creatinine 0.71 2D echo: EF 30-35%.Mild to moderate aortic regurgitation. Mild to moderate tricuspid regurgitation. Chest x-ray film personally reviewed by me-some vascular crowding at the bases. CT brain: Nonspecific white brain matter changes LDL: 65.7 UA: Negative Troponin I: 2.1, 1.4, 1.6 Assessment plan: - -Acute Non-STEMI Seen by cardiology. Medical management -Acute CHF exacerbation, systolic dysfunction EF 30 to 35%.: Better Received diuretics. Add Aldactone 12.5 p.o. daily - Acute hypoxic respiratory failure from CHF/COPD exacerbation Better -Acute COPD exacerbation, in a smoker better Ventolin. Symbicort. Switched over to oral steroids -Hemoptysis, likely secondary to pneumonia -Metabolic acidosis with low pH 7.28 on admission. Improved -Doubt pneumonia. Per pulmonary Antibiotics discontinued -Chronic nicotine dependence, cigarette smoker Nicotine patch - GERD PPI - Chronic fibromyalgia, primary OA Pain medication as needed - Hyper-thyroidism Tapazole -Full code Discussed with patient. Increase activity. Up in the hallway. Possibly dis charge tomorrow
[2024-07-04 16:52] LABS: Glucose,Whole Blood 139 mg/dL (70-110)
[2024-07-04] MEDS: ENOXAPARIN 40 MG/0.4 ML SYRINGE SQ SCH (17:41)
[2024-07-04] MEDS: SPIRONOLACTONE 25 MG TAB PO SCH (17:42)
[2024-07-04] MEDS: LOSARTAN 25 MG TAB PO SCH (20:17)
[2024-07-04 20:19] LABS: Glucose,Whole Blood 119 mg/dL (70-110)
[2024-07-05 06:29] LABS: Glucose,Whole Blood 99 mg/dL (70-110)
[2024-07-05 11:07] VITALS: BP 142/76; PULSE 80; RESP 18; TEMP 97.6
[2024-07-05 11:40] VITALS: BMI 22.3
--- NOTE | 2024-07-05 12:20 | P.PN ---
Subjective HISTORY OF PRESENT ILLNESS: HPI: Patient is a pleasant 63-year-old female who is a patient of Dr. Nowak with a past medical history that includes COPD, fibromyalgia, GERD, hypertension, osteoarthritis, hypothyroidism, peripheral vascular disease, who was transferred from an outside facility for evaluation regarding CHF with elevated troponin, suspected PE versus CHF. Patient reports that she had shortness of breath that developed yesterday. Patient discovered that her son had recently, and has been having a significantly difficult time dealing with it. Patient was found to be significantly hypoxic upon arrival to the emergency department. She was started on supplemental oxygen. Transferring paperwork was reviewed which showed elevated troponin, CT scan showed no pulmonary embolism or evidence of congestive heart failure. EKG completed here demonstrated nonspecific T wave abnormalities with no significant evidence of ischemia. Chest x-ray was consistent with possible pneumonia. Lab work showed an elevated white blood cell count. The patient was subsequently admitted for further treatment of possible pneumonia, and cardiology was consulted for the elevated troponins and possible CHF. Office records are reviewed from 03/21/2024 which shows an EKG with similar T wave abnormalities when compared to current EKGs. Patient had a dobutamine stress echo that showed an abnormal stress test by EKG criteria but a negative dobutamine stress echo. This morning upon evaluation the patient reports that she is breathing better today. She is denying any chest pain or heart palpitations. REVIEW OF LABS, ECG & MEDICAL DATA: LABS: White count 22.9, hemoglobin 16.1, platelets 219, sodium 136, potassium 5.1, chloride 108, BUN 33, creatinine 0.68, magnesium 1.9, troponin x 3-2.14, 1.44, 1.16 EKG: Sinus mechanism with nonspecific T wave abnormalities. IMAGING: Chest x-ray dated 06/30/2024 demonstrates bilateral lower lobe airspace opacities concerning for pneumonia, atelectasis could also be considered. CT of the brain without contrast dated 06/30/2024 demonstrates no acute intracranial process, nonspecific white matter changes, likely secondary to chronic small vessel ischemic disease. 07/02/2024 Patient examined this morning at bedside. Patient currently denies chest pain or pressure. She reports improvement in her shortness of breath. 2D echo remains pending. She is maintaining sinus mechanism with a heart rate in the 90s. She is currently on IV heparin. 07/03/2024 Patient examined this morning at bedside. Patient currently denies chest pain or pressure. She denies shortness of breath. Echocardiogram completed revealing ejection fraction 30 to 35% with anterior and septal and lateral h ypokinesis, consider Takotsubo. Systolic blood pressure in the low 100s. 07/04/2024 Patient examined this morning at the bedside. Patient currently denies chest pain or pressure. She denies shortness of breath. Blood pressure 108/69. She is maintaining sinus mechanism. 07/05/2024 Patient examined this morning at bedside. Patient currently denies chest pain or pressure. She denies shortness of breath. She is maintaining sinus mechanism. Vital signs are stable. PHYSICAL EXAM: VITAL SIGNS: Reviewed. GENERAL: Well-developed in no acute distress. NECK: Supple. No JVD or thyromegaly LUNGS: Respirations even and unlabored. Lungs essentially clear to auscultation bilaterally. HEART: Regular rate and rhythm. S1 and S2 heard. EXTREMITIES: Normal range of motion. No clubbing or cyanosis. Peripheral pulses intact. No lower extremity edema ASSESSMENT: Acute hypoxic respiratory failure Bilateral pneumonia, ruled out with normal procalcitonin Acute heart failure with reduced EF Possible Takotsubo cardiomyopathy History of hypertension History of hyperlipidemia History of COPD Elevated troponins, type II [place] secondary to oxygen supply and demand mismatch Peripheral vascular disease History of fibromyalgia History of GERD PLAN: Continue current cardiac medications including aspirin, Lipitor, Plavix, Lasix, losartan metoprolol No plans for invasive cardiac procedures at this time Patient is stable for discharge home today from a cardiac standpoint Nurse practitioner note has been reviewed by physician. Signing provider agrees with the documented findings, assessment, and plan of care documented by WEATHER FORECASTER as a scribe. Objective - Vital Signs Vital signs: Vital Signs Temp 97.6 F 07/05/24 08:25 Pulse 80 07/05/24 08:25 Resp 18 07/05/24 08:25 BP 142/76 07/05/24 08:25 Pulse Ox 99 07/05/24 08:25 FiO2 75 06/30/24 19:10 Intake & Output 07/04/24 07/05/24 07/05/24 18:59 06:59 18:59 Intake Total 720 240 Balance 720 240 Weight 58.9 kg 58.9 kg Intake: Oral 720 240 Other: # Voids 3 1 - Labs CBC & Chem 7: 07/03/24 06:27 07/03/24 06:27 Labs: Abnormal Lab Results - Last 24 Hours (Table) 07/04/24 07/04/24 Range/Units 16:49 20:17 POC Glucose (mg/dL) 139 H 119 H (70-110) mg/dL
--- NOTE | 2024-07-05 13:02 | P.PN ---
Subjective Progress Note Date: 07/05/24 Principal diagnosis: CHF, COPD. This is a 62-year-old female with known history of COPD, not O2 dependent and not prednisone dependent, tobacco dependence syndrome, history of fibromyalgia, hypertension, hypothyroidism, patient was seen yesterday at [facility] with an acute episode of chest pain. Patient had a CT of the chest that showed mostly congestive heart failure, patient was transferred to [facility], apparently she recently discovered that her son had recently. And she is having difficulty coping with the situation. In the [facility] room patient was noted to be hypoxic upon arrival, she was placed on supplemental oxygen, CT of the chest done at [place] showed no evidence of pulmonary embolism but did show evidence of interstitial edema. EKG showed nonspecific T wave abnormalities, chest x-ray in our institution showed evidence of interstitial edema, doubt underlying pneumonia and it is felt to be less likely considering the clinical history and considering the chest x-ray findings. At any rate patient was found to have elevated troponin levels significantly elevated BNP level, and so far she has been seen by cardiology on consultation, placed on heparin and I recommended diuretics. Patient is now on 7 L high flow nasal cannula O2 saturation is 98%. Admitting physician placed the patient empirically on antibiotics, again index of suspicion for pneumonia is rather low but she is on ceftriaxone and Zithromax, procalcitonin level is pending if normal will discontinue antibiotics in the next 24 hours. Patient does have intermittent episodes of cough with blood-tinged sputum, presently on heparin as recommended by cardiology for her elevated troponin. Seen today on 07/02/2024, patient is feeling better breathing easier but continues to have some shortness of breath. No fever no chills no hemoptysis. Chest x-ray showed definite improvement in her overall pulmonary vasculature, but she does have now a small left-sided pleural effusion. Patient remains on diuretics, steadily improving, being followed by cardiology, echocardiogram is pending. Patient is now off heparin. WBC count is 21.8 hemoglobin 15.4 electrolytes are normal renal profile is normal The patient is seen today July 03, 2024 in follow-up on the selective care unit. She is currently sitting up in bed. Awake and alert in no acute distress. Maintaining O2 saturations in the 90s on room air oxygen. She remains on Symbicort, albuterol, Medrol Dosepak. Continued on oral diuretics. NicoDerm patch in place. White count 16.6. Hemoglobin 13.3. Platelets 142. Sodium 141. Potassium 3.5. Bicarb 25. BUN 35. Creatinine 0.71. Glucose 124. Progress note dated July 04, 2024. 63-year-old female seen today in room 373. The patient is currently on room air. The patient is getting saline at 25 cc an hour. She denies any respiratory difficulty or distress. She is awake and alert. No new labs today. Glucose is 128. No recent chest x-ray. Progress note dated July 05, 2024. 63-year-old female seen today in room 373. She is sitting at the edge of the bed. She has all her bags packed, because she is hoping to be discharged. We will leave that up to the primary service. He is currently on room air. She is not receiving any IV fluids. She states that she is feeling well, without any complaints. She denies any shortness of breath, cough, wheezing, chest tightness, or phlegm production. Current labs only include a glucose of 99. Objective - Vital Signs Vital signs: Vital Signs Temp 97.6 F 07/05/24 08:25 Pulse 80 07/05/24 08:25 Resp 18 07/05/24 08:25 BP 142/76 07/05/24 08:25 Pulse Ox 99 07/05/24 08:25 FiO2 75 06/30/24 19:10 Intake & Output 07/04/24 07/05/24 07/05/24 18:59 06:59 18:59 Intake Total 720 240 Balance 720 240 Weight 58.9 kg 58.9 kg Intake: Oral 720 240 Other: # Voids 3 1 - Exam No acute distress, oriented 3. HEENT examination is grossly unremarkable. Mucous membranes are moist. No oral lesions. Neck supple. Full range of motion. No adenopathy thyromegaly or neck vein distention. Cardiovascular examination reveals regular rhythm rate. S1-S2 normal. No S3 or S4. No discernible murmur noted. Lungs reveal clear breath sounds. Breath sounds are equal bilaterally. No adventitious lung sounds including wheezes rhonchi or crackles. Abdomen soft bowel sounds are heard. No masses or tenderness. Extremities are intact. No cyanosis clubbing or edema. Skin is without rash or lesion. Neurologic examination is brief but nonfocal. - Labs CBC & Chem 7: 07/03/24 06:27 07/03/24 06:27 Labs: Abnormal Lab Results - Last 24 Hours (Table) 07/04/24 07/04/24 Range/Units 16:49 20:17 POC Glucose (mg/dL) 139 H 119 H (70-110) mg/dL Assessment and Plan Assessment: Acute hypoxemic respiratory failure, secondary to systolic congestive heart radha lure, with ejection fraction of 30 to 35%. Possible Takotsubo syndrome. Acute non-ST segment elevation myocardial infarction. History of underlying COPD. Tobacco dependence syndrome. Plan: Plan dated July 04, 2024. The patient was seen today in room 373, interviewed and examined. Chest x-ray, labs, and all medications have been reviewed. Currently, the patient is on room air. She is receiving saline at 25 cc an hour. A nicotine patch is in place. She continues on appropriate medications including albuterol, and Symbicort. We will continue to follow the patient, and make recommendations along the way. The patient's overall prognosis remains guarded. Dictation was produced using [employer] software. Please excuse any grammatical, word or spelling errors. Plan dated July 05, 2024. The patient appears to be doing relatively well. She is on room air. No IV fluids. The patient is hoping to be discharged sometime today. Labs, x-rays, and all medications are reviewed. The patient denies any pulmonary issues including shortness of breath, cough, wheezing, chest tightness, or phlegm production. We will continue to follow. Prognosis is guarded. Dictation was produced using [employer] software. Please excuse any grammatical, word or spelling errors. Time with Patient: Less than 30
--- NOTE | 2024-07-05 19:05 | CDI ---
Date: 07/05/2024 From: Leigh [email or web address] Email: [email or web address] Admit Date: 06/30/2024 05:20:00 PM Patient Name: Aundrea Lubin Visit Number: [id number] Discharge Date: N/A ATTENTION: The Clinical Documentation Specialists (CDI) and [facility] Coding Staff appreciate your assistance in clarifying documentation. Please respond to the clarification below the line at the bottom and electronically sign. The CDI & [facility] Coding staff will review the response and follow-up if needed. Please note: Queries are made part of the Legal Health Record. If you have any questions, please contact the author of this message via ITS. Dr. Brijesh Celis, Elevated troponins, type II ME secondary to oxygen supply and demand mismatch is documented in your Progress Note on 07/04/2024. Additional specification regarding the etiology of the Type 2 ME is requested. History/Risk Factors: 63-year-old female presented to [facility] ED as a transfer from an outside facility for evaluation regarding possible congestive heart failure and elevated troponin levels. PMH: Hypertension, peripheral vascular disease, GERD, hyperlipidemia, chronic obstructive pulmonary disease Clinical indicators: Documentation Location: Electronic Medical Record VS in ED: T 97.5 F (Axillary) HR 102 RR 18 BP 104/64 SpO2 82% on Room Air 94% on 4L Nasal Cannula Troponin Trend (06/30/2024): 2.140 1.440 1.160 BNP (06/30/2024): 11,100 EKGs: o 06/30/2024: Ventricular Rate: 99bpm. Sinus rhythm. Non-specific T-wave abnormality. Borderline ECG. o 07/01/2024: Ventricular Rate: 85bpm. Sinus rhythm. Septal myocardial inf arction, of indeterminate age. Moderate T-wave abnormality, consider anterolateral ischemia. Abnormal ECG Echocardiogram (07/02/2024): Reduced LV systolic function with anterior and septal and lateral hypokinesis. Left atrial enlargement. The basal segment contracts reasonably well with the mid and distal LV is definitely hypokinetic. Consider Takotsubo syndrome Internal Medicine Progress Note (07/03/2024): Acute Non-STEMI Cardiology Progress Note (07/04/2024): o Patient discovered that her son had recently, and has been having a significantly difficult time dealing with it. Patient was found to be significantly hypoxic upon arrival to the emergency department o Transferring paperwork was reviewed which showed elevated troponin, CT scan showed no pulmonary embolism or evidence of congestive heart failure o EKG completed here demonstrated nonspecific T wave abnormalities with no significant evidence of ischemia. Office records are reviewed from 03/21/2024 which shows an EKG with similar T-wave abnormalities when compared to current EKGs. Patient had a Dobutamine stress echo that showed an abnormal stress test by EKG criteria but a negative Dobutamine stress echo o Assessment: Acute hypoxic respiratory failure. Bilateral pneumonia ruled out with normal procalcitonin. Acute heart failure with reduced EF. Possible Takotsubo cardiomyopathy. Elevated troponins, type II ME secondary to oxygen supply and demand mismatch Treatment: Cardiology Consultation Troponin Trend x 3 Aspirin 324mg Oral x 1 Aspirin 325mg Oral Daily Aspirin 81mg Oral Daily Heparin IV Infusion (Discontinued 07/02/2024) Morphine 4mg IVP x 1 on 06/30/2024 Please clarify/further specify the etiology of the Type 2 ME, if known: [ ] Type 2 ME secondary to Takotsubo syndrome, acute systolic heart failure, and hypoxia [ ] Type 2 ME due to other (please specify etiology): [ ] Type 2 ME ruled out. Acute non-ischemic myocardial injury related to Takotsubo syndrome [ ] Unable to determine [ ] Other condition, please specify: Reference: [employer] Fourth [place] Definition of Myocardial Infraction Type II ME is indicated when an acute myocardial injury in the setting of an abnormal troponin with a rise and fall and clinical indicators suggestive of an imbalance between myocardial oxygen supply demand with acute myocardial ischemia unrelated to coronary thrombosis as evidenced by one of the following: Symptoms of myocardial ischemia New ischemic ECG changes Development of pathological Q waves Imaging evidence of new loss of viable myocardium or new regional wall motion abnormality in a pattern consistent with an ischemic etiology Unable to determine MTDD
--- NOTE | 2024-07-05 20:46 | P.DS ---
Providers Date of admission: 06/30/24 17:20 Expected date of discharge: 07/05/24 Attending physician: Umberto Goode Consults: 06/30/24 17:18 Consult Physician Routine Consulting Provider: Zainab Sosa Consult Reason/Comments: hypoxia Do you want consulting provider notified?: Yes Consult Physician Routine Consulting Provider: Yoel Jay Consult Reason/Comments: nstemi Do you want consulting provider notified?: Yes Primary care physician: Ken Boudreaux [facility] Course: This is a pleasant 63 years old female with past medical history of multiple medical problems Presents because of chest pain of 1 day duration which she describes as really bad about 8/10 in the middle of her chest radiating to the back nonspecific in character with no specific risks precipitating or relieving factors associated with some dyspnea and she has been having coughing for the last 2 days with some of blood small amount every day. She denies GI specific symptoms she has some headache but no dizziness weakness or numbness There is suspicion of palpitation on admission as well. Patient feels generally weak but no specific lateralization She smokes about 3 to 4 cigarettes/day and she was counseled to quit and she agrees and she wants a nicotine patch. No alcohol or illicit drugs. Also patient vomited 3 times yesterday but there was no blood in it. She is requiring more oxygen since yesterday she was on 4 L went up to 8 L/m, patient is not on oxygen at home and does not use CPAP/BiPAP at home Blood pressure is borderline 96/65. Patient sitting up in bed with no dizziness. WBC is elevated 22.9. Troponin elevated 2.1, 1.4 and 2.1. Venous pH is low at 7.28 and CO2 is within the reference range at 42. proBNP is elevated 945[address]. Salicylate and acetaminophen are negative less than 10 and 100. EKG showing sinus rhythm at [address]-T changes Chest x-ray showing bilateral lower infiltrates suspicious for CHF versus pneumonia Patient currently on heparin drip, ceftriaxone Zithromax Solu-Medrol 40 mg and aspirin 81 mg 07/02 Patient today complains from headache Her breathing is better, currently on room air Still on heparin drip but cardiology planning to discontinue it and placed on subcutaneous heparin Also patient is on aspirin and Plavix was added today. Patient had few beats of SVT. No chest pain Used BiPAP machine last night Check procalcitonin is low less than 0.02 07/03 Patient awake alert mildly tachypneic no significant breathing difficulty or chest pain She is concerned about comfortable blood today. She is saturating 98% on room air. Hemodynamically stable. WBC is 16,000, hemoglobin stable. Creatinine 0.7. Troponin was elevated on admission Yesterday aspirin and Plavix was added. By cardiology team and Coreg switched to metoprolol 12.5 mg Currently on IV Solu-Medrol, no need for antibiotic July 04: Some improvement in shortness of breath. Slight cough. Some improvement in appetite. Has been up to the bathroom. Have the patient ambulate hopefully in the hallway. Sit up in the chair. Patient being switched over to oral steroids. July 05: Patient's son to 3 days ago. Will be attending a today. A bit upset about the same. Few pills of Ativan given for the same. Patient counseled about smoking. She will follow-up with her engine installer Dr. Sosa. Patient did walk the hallway On examination: VITAL SIGNS: 97.6, 80, 18, 142 x 76, 99% room air GENERAL APPEARANCE: Sitting at the edge of the bed, bit tired. HEENT: Normal external appearance of nose and ear. Oral cavity normal EYES: Pupils equal. Conjunctiva normal. NECK: JVD not raised. Mass not palpable. RESPIRATORY: Respiratory effort normal. Diminished breath sounds CARDIOVASCULAR: First and second sounds normal. No edema. ABDOMEN: Soft. Liver and spleen not palpable. No tenderness. No mass palpable. PSYCHIATRY: Alert and oriented x3. Mood and affect a bit low INVESTIGATIONS, reviewed in the clinical context: July 03: White count 16.6 hemoglobin 13.3 platelets 142 sodium 141 potassium 3.5 creatinine 0.71 2D echo: EF 30-35%.Mild to moderate aortic regurgitation. Mild to moderate tricuspid regurgitation. Chest x-ray film personally reviewed by me-some vascular crowding at the bases. CT brain: Nonspecific white brain matter changes LDL: 65.7 UA: Negative Troponin I: 2.1, 1.4, 1.6 Assessment plan: - -Acute Non-STEMI Seen by cardiology. Medical management Follow-up Dr. MIRNA Celis -Acute CHF exacerbation, systolic dysfunction EF 30 to 35%.: Better Received diuretics. Aldactone 12.5 p.o. daily. Lasix. Cozaar - Acute hypoxic respiratory failure from CHF/COPD exacerbation: Improved -Acute COPD exacerbation, in a smoker better Ventolin. Symbicort. Switched over to oral steroids Discharged on prednisone taper - Acute situational anxiety from of her son apparently suicide about 2 3 days ago. Patient be attending his this afternoon -Hemoptysis, likely secondary to pneumonia: Improved -Metabolic acidosis with low pH 7.28 on admission. Improved -Doubt pneumonia. Per pulmonary Antibiotics discontinued -Chronic nicotine dependence, cigarette smoker Nicotine patch. Patient counseled - GERD PPI - Chronic fibromyalgia, primary OA Pain medication as needed - Hyper-thyroidism Tapazole -Full code Disposition: Home Plan - Discharge Summary Discharge Rx Participant: No New Discharge Prescriptions: New LORazepam [Ativan] 0.5 mg PO Q12H PRN #10 tab PRN Reason: Anxiety Nicotine 14Mg/24Hr Patch [Habitrol] 1 patch TRANSDERM DAILY #30 patch Furosemide [Lasix] 20 mg PO DAILY #30 tab Atorvastatin [Lipitor] 80 mg PO DAILY #30 tab Metoprolol Tartrate [Lopressor] 25 mg PO BID #60 tab predniSONE 10 mg PO DAILY #30 tab Spironolactone [Aldactone] 12.5 mg PO DAILY #30 tablet Losartan [Cozaar] 12.5 mg PO HS #30 tab Continue Budesonide/Formoterol Fumarate [Symbicort 160-4.5 Mcg Inhaler] 2 puff INHALATION RT-BID methIMAzole [Tapazole] 5 mg PO DAILY Clopidogrel [Plavix] 75 mg PO DAILY Gabapentin [Neurontin] 300 mg PO TID PRN PRN Reason: Pain Aspirin 81 mg PO DAILY Omeprazole 40 mg PO DAILY Albuterol Inhaler [Ventolin Hfa Inhaler] 2 puff INHALATION RT-Q4H PRN PRN Reason: Shortness Of Breath Discontinued amLODIPine [Norvasc] 2.5 mg PO DAILY carvediloL [Coreg] 3.125 mg PO BID Meloxicam [Mobic] 7.5 mg PO DAILY Atorvastatin [Lipitor] 20 mg PO HS Discharge Medication List Aspirin 81 mg PO DAILY 02/24/17 [History] Budesonide/Formoterol Fumarate [Symbicort 160-4.5 Mcg Inhaler] 2 puff INHALATION RT-BID 02/24/17 [History] Clopidogrel [Plavix] 75 mg PO DAILY 02/24/17 [History] Gabapentin [Neurontin] 300 mg PO TID PRN 02/24/17 [History] methIMAzole [Tapazole] 5 mg PO DAILY 02/24/17 [History] Albuterol Inhaler [Ventolin Hfa Inhaler] 2 puff INHALATION RT-Q4H PRN 06/30/24 [History] Omeprazole 40 mg PO DAILY 06/30/24 [History] Atorvastatin [Lipitor] 80 mg PO DAILY #30 tab 07/05/24 [Rx] Furosemide [Lasix] 20 mg PO DAILY #30 tab 07/05/24 [Rx] LORazepam [Ativan] 0.5 mg PO Q12H PRN #10 tab 07/05/24 [Rx] Losartan [Cozaar] 12.5 mg PO HS #30 tab 07/05/24 [Rx] Metoprolol Tartrate [Lopressor] 25 mg PO BID #60 tab 07/05/24 [Rx] Nicotine 14Mg/24Hr Patch [Habitrol] 1 patch TRANSDERM DAILY #30 patch 07/05/24 [Rx] Spironolactone [Aldactone] 12.5 mg PO DAILY #30 tablet 07/05/24 [Rx] predniSONE 10 mg PO DAILY #30 tab 07/05/24 [Rx] Follow up Appointment(s)/Referral(s): Zainab Sosa MD [STAFF PHYSICIAN] - 1 Week (Lung doctor. Please call to schedule follow up. ) Brijesh Celis MD [STAFF PHYSICIAN] - 1 Week (Heart doctor. Please call to schedule follow up. ) [facility] [facility] [NON-STAFF] - Ken Boudreaux MD [Primary Care Provider] - 1-2 days (Medical doctor. Please call to schedule follow up. ) Patient Instructions/Handouts: Angina (DC), Heart Failure (DC) Discharge/Stand Alone Forms: Who Do I Call?, Outpatient Counseling Discharge Disposition: HOME SELF-CARE
--- NOTE | 2024-07-20 18:59 | CDI ---
Date: 07/20/2024 From: Leigh [email or web address] Email: [email or web address] Admit Date: 06/30/2024 05:20:00 PM Patient Name: Aundrea Lubin Visit Number: [id number] Discharge Date: 07/05/2024 12:12:00 PM ATTENTION: The Clinical Documentation Specialists (CDI) and [facility] Coding Staff a ppreciate your assistance in clarifying documentation. Please respond to the clarification below the line at the bottom and electronically sign. The CDI & [facility] Coding staff will review the response and follow-up if needed. Please note: Queries are made part of the Legal Health Record. If you have any questions, please contact the author of this message via ITS. Nargis Khoury, Conflicting documentation has been found in the medical record. Clarification is requested. Cardiology Progress Note (07/04/2024): Elevated troponins, type II VA secondary to oxygen supply and demand mismatch Cardiology Progress Note (07/04/2024): Possible Takotsubo cardiomyopathy History/Risk Factors: 63-year-old female presented to [facility] ED as a transfer from an outside facility for evaluation regarding possible congestive heart failure and elevated troponin levels. PMH: Hypertension, peripheral vascular disease, GERD, hyperlipidemia, chronic obstructive pulmonary disease Clinical indicators: Documentation Location: Electronic Medical Record VS in ED: T 97.5 F (Axillary) HR 102 RR 18 BP 104/64 SpO2 82% on Room Air 94% on 4L Nasal Cannula Troponin Trend (06/30/2024): 2.140 1.440 1.160 BNP (06/30/2024): 11,100 EKGs: o 06/30/2024: Ventricular Rate: 99bpm. Sinus rhythm. Non-specific T-wave abnormality. Borderline ECG. o 07/01/2024: Ventricular Rate: 85bpm. Sinus rhythm. Septal myocardial infarction, of indeterminate age. Moderate T-wave abnormality, consider anterolateral ischemia. Abnormal ECG Echocardiogram (07/02/2024): Reduced LV systolic function with anterior and septal and lateral hypokinesis. Left atrial enlargement. The basal segment contracts reasonably well with the mid and distal LV is definitely hypokinetic. Consider Takotsubo syndrome Internal Medicine Progress Note (07/03/2024): Acute Non-STEMI Cardiology Progress Note (07/04/2024): o Patient discovered that her son had recently, and has been having a significantly difficult time dealing with it. Patient was found to be significantly hypoxic upon arrival to the emergency department o Transferring paperwork was reviewed which showed elevated troponin, CT scan showed no pulmonary embolism or evidence of congestive heart failure o EKG completed here demonstrated nonspecific T wave abnormalities with no significant evidence of ischemia. Office records are reviewed from 03/21/2024 which shows an EKG with similar T-wave abnormalities when compared to current EKGs. Patient had a Dobutamine stress echo that showed an abnormal stress test by EKG criteria but a negative Dobutamine stress echo o Assessment: Acute hypoxic respiratory failure. Bilateral pneumonia ruled out with normal procalcitonin. Acute heart failure with reduced EF. Possible Takotsubo cardiomyopathy. Elevated troponins, type II VA secondary to oxygen supply and demand mismatch Treatment: Cardiology Consultation Troponin Trend x 3 Aspirin 324mg Oral x 1 Aspirin 325mg Oral Daily Aspirin 81mg Oral Daily Heparin IV Infusion (Discontinued 07/02/2024) Morphine 4mg IVP x 1 on 06/30/2024 Please clarify which diagnosis is most appropriate: [ x ] Type 2 VA secondary to supply/demand mismatch in relation to acute s ystolic heart failure [ ] Type 2 VA secondary to supply/demand mismatch in relation to other etiol ogy (please specify): [ ] Type 2 VA due to other (please specify etiology): [ ] Takotsubo cardiomyopathy (type 2 myocardial infarction ruled out) [ ] Other condition, please specify: [ ] Unable to determine Reference: [employer] [place] [employer] [place] Definition of Myocardial Infraction Type II VA is indicated when an acute myocardial injury in the setting of an abnormal troponin with a rise and fall and clinical indicators suggestive of an imbalance between myocardial oxygen supply demand with acute myocardial ischemia unrelated to coronary thrombosis as evidenced by one of the following: Symptoms of myocardial ischemia New ischemic ECG changes Development of pathological Q waves Imaging evidence of new loss of viable myocardium or new regional wall motion abnormality in a pattern consistent with an ischemic etiology Unable to determine MTDD
== END 2024-07-05 12:12 | disposition home or self-care (01) | DRG 280 ==
LOC: EC 16:19 → 3SCARD 17:20
PROVIDERS: ADMIT Hospitalist; ATTEND Hospitalist
DX: I11.0 Hypertensive heart disease with heart failure (principal); I50.23 Acute on chronic systolic (congestive) heart failure; I21.A1 Myocardial infarction type 2; J96.01 Acute respiratory failure with hypoxia; J18.9 Pneumonia, unspecified organism; E87.20 Acidosis, unspecified; I47.10 Supraventricular tachycardia, unspecified; J44.0 Chronic obstructive pulmonary disease with (acute) lower respiratory infection; I73.9 Peripheral vascular disease, unspecified; I08.3 Combined rheumatic disorders of mitral, aortic and tricuspid valves; E05.90 Thyrotoxicosis, unspecified without thyrotoxic crisis or storm; J44.1 Chronic obstructive pulmonary disease with (acute) exacerbation; R79.89 Other specified abnormal findings of blood chemistry; Z79.890 Hormone replacement therapy; F17.210 Nicotine dependence, cigarettes, uncomplicated; E78.5 Hyperlipidemia, unspecified; F41.9 Anxiety disorder, unspecified; M79.7 Fibromyalgia; Z71.6 Tobacco abuse counseling; Z79.02 Long term (current) use of antithrombotics/antiplatelets; Z79.1 Long term (current) use of non-steroidal anti-inflammatories (NSAID); Z79.51 Long term (current) use of inhaled steroids; Z79.82 Long term (current) use of aspirin; Z79.899 Other long term (current) drug therapy; K21.9 Gastro-esophageal reflux disease without esophagitis
CPT/HCPCS: 36415; 51798; 70450; 71045; 80048; 80053; 80061; 80143; 80179; 81003; 82140; 82803; 83605; 83735; 83880; 84100; 84145; 84484; 85025; 85049; 85610; 85730; 93005; 93306; 94640; 94660; 94760; 96365; 96366; 96367; 96368; 96375; 96376; 99291